=== PATIENT | female | born 1970 | race African-American/Black ===

== ENCOUNTER 2016-09-30 18:22 | Inpatient (IN) ==
[2016-09-30] MEDS ORDERED: MORPHINE IV ONE (18:54)
[2016-09-30] MEDS ORDERED: ZOFRAN IV ONE (18:54)
[2016-09-30] MEDS ORDERED: BENADRYL IV ONE (19:33)
[2016-09-30 19:37] LABS: ALBUMIN 3.4 g/dL (3.5-5.0); CALCIUM 9.1 mg/dL (8.8-10.2); POTASSIUM 4.1 mmol/L (3.5-5.1); TOTAL BILIRUBIN 0.2 mg/dL (0.20-1.00); TOTAL PROTEIN 7.2 g/dL (6.3-8.3)
[2016-09-30 19:39] LABS: MANUAL DIFF NEEDED? NO
[2016-09-30 19:40] LABS: BASO% 0.4 % (0.0-0.8); EOS# 0.44 X1000 (0.0-0.7); EOS% 4.3 % (0.0-10.0); HEMATOCRIT 27.4 % (37.0-47.0); HEMOGLOBIN 9.1 g/dL (12.0-16.0); IMM GRAN# 0.02 X1000 (0.0-0.04); IMM GRAN% 0.2 % (0.0-0.5); LYMPH# 2.46 X1000 (1.2-3.4); LYMPH% 24.1 % (20.5-51.1); MCH 25.9 PG (27-31); MCHC 33.2 g/dL (33-37); MCV 78.1 FL (81-99); MONO% 6.9 % (1.7-9.3); MPV 9.4 FL (7.4-10.4); NEUT% 64.1 % (42.2-75.2); PLT 480 X1000 (130-400); RBC 3.51 XMIL (4.2-5.4)
[2016-09-30] MEDS ORDERED: HEPARIN IV ONE (20:14)
[2016-09-30] MEDS ORDERED: HEPARIN 25,000 UNITS/D5W 25,000 UNIT/250 ML IV.SOLN IV SCH (20:15)
--- NOTE | 2016-09-30 20:15 | PROVIDER DOCUMENTATION ---
This chart was entered by Heidi Hale Scribe, acting as scribe for Michael Claros MD. HPI-General Adult - General Chief Complaint: Extremity Pain Stated Complaint: EXTREMITY PAIN "NEROPATHY" Time Seen by Provider: 09/30/16 18:51 Source: patient Allergies/Adverse Reactions: Patient Allergies Allergy/AdvReac Type Severity Reaction Status Date / Time Penicillins Allergy RASH Verified 02/28/16 10:46 Home Medications: Home Medication List Medication Instructions Recorded Confirmed Last Taken Type Aspirin 81 mg PO DAILY #0 chewtab 01/29/13 03/11/16 03/11/16 07:00 Rx 81 MG Nitroglycerin Sl [Nitroglycerin] 0.4 mg SL Q5M PRN PRN #0 tablet 01/29/1303/11/16 07:00 Rx 0.4 MG Ergocalciferol (Vitamin D2) 50,000 unit PO DIRECTED 11/03/15 03/11/16 07:00 History [Vitamin D] 65927 UNIT LOVAstatin [Mevacor] 20 mg PO DAILY 11/03/15 03/11/16 03/11/16 07:00 History 20 MG Lisinopril 30 mg PO BID 11/03/15 03/11/16 03/11/16 07:00 History 30 MG Glipizide [Glipizide Xl] 5 mg PO BID 11/10/15 03/11/16 03/11/16 07:00 History 5 MG Insulin Glargine [Lantus] 18 unit SUBQ QHS 11/10/15 03/11/16 03/10/16 21:00 History 18 UNIT Clopidogrel [Plavix] 75 mg PO DAILY #30 tablet 01/24/16 03/11/16 03/11/16 07:00 Rx 75 MG Gabapentin [Neurontin] 300 mg PO TID #90 capsule 01/24/16 03/11/16 03/11/16 07: 00 Rx 300 MG Hydrocodone/APAP 7.5 mg/325 mg 1 each PO Q6H PRN PRN #25 tablet 01/24/1603/11/16 07:00 Rx [[place]-7.5] 1 EACH Daptomycin 500 mg IV Q24H #35 03/08/16 03/11/16 03/11/16 07:00 Rx 500 MG Amlodipine [Norvasc] 5 mg PO DAILY #0 tablet 03/19/16 Unknown Rx Clonazepam [Klonopin] 0.5 mg PO Q8H PRN PRN #0 tablet 03/19/16 Unknown Rx Levofloxacin [Levaquin] 500 mg PO ONCE #34 tablet 03/19/16 Unknown Rx Metoprolol Succinate E.r. [Toprol 25 mg PO BID #0 tablet 03/19/16 Unknown Rx Xl] - History of Present Illness -Gen Adult Nature of Presenting Problems: Pt is a 46 year old female who came to the ED with a cc of her right leg being cold to the touch and not having any feeling. Pt reports her foot was numb and painful to the touch two days ago. Pt reports she has neuropathy and her left leg was amputated. pt reports she has diabetes and is a smoker. Location of Pain/Injury: reports: feet (right) Pain Radiation: reports: no radiation Quality of Pain: reports: sharp Severity: reports: moderate Onset/Duration: reports: 2 days ago Timing: reports: still present Context/Activities at Onset: reports: none Modifying Factors: improves with: nothing Associated Symptoms: reports: trouble walking. denies: diarrhea, nausea Similar Symptoms Previously?: Yes Recently seen or treated by another doctor?: Yes Review of Systems - Adult - REVIEW OF SYSTEMS - ADULT Constitutional: denies: chills, fever Eyes: reports: no symptoms reported Ears, Nose, Mouth & Throat: reports: no symptoms reported Cardiovascular: denies: chest pain, syncope Respiratory: reports: no symptoms reported Gastrointestinal: reports: no symptoms reported Genitourinary: reports: no symptoms reported Musculoskeletal: reports: no symptoms reported Integumentary: reports: other (right foot cold to the touch). denies: itching, nail changes Neurological: reports: numbness (right foot). denies: seizure, tremors Psychiatric: reports: no symptoms reported Endocrine: reports: no symptoms reported Hematologic/Lymphatic: reports: no symptoms reported Allergic/Immunologic: reports: no symptoms reported All Other Systems: Reviewed and Negative Past History - Adult - PAST MEDICAL HISTORY-ADULT Review of Records: reports: Nursing Assessment Review Major Childhood Illnesses: reports: denies history Cardiovascular: reports: HTN, CA Respiratory: reports: denies history Gastrointestinal: reports: denies history Obstetrical/Gynecological: reports: denies history Genitourinary: reports: kidney disease Musculoskeletal: reports: denies history Neurological: reports: CVA Endocrine/Immune: reports: Diabetes Other Conditions: reports: denies history - PRIOR SURGERIES/PROCEDURES Surgical/Procedure History: reports: orthopedic (extremity) (left foot 5th toe amputate) - IMMUNIZATION STATUS Childhood Immunizations: See Nurse Assessment Flu Vaccine: See Nurse Assessment - FAMILY HISTORY Family History: reviewed, not pertinent Physical Exam-General - PHYSICAL EXAM-ADULT Initial Vital Signs Reviewed: Yes - CONSTITUTIONAL General Appearance: alert, mild distress - EYES Eyes: PERRL/EOMI, pink conjunctivae - HEAD, EARS, NOSE, MOUTH & THROAT HENMT: normocephalic/atraumatic, moist mucous membranes - NECK Neck: non-tender, full range of motion - RESPIRATORY Respiratory: chest non-tender, lungs clear - CARDIOVASCULAR Cardiovascular: normal peripheral pulses, regular rate, rhythm - GASTROINTESTINAL (ABDOMEN) Abdominal Exam: normal bowel sounds, non tender - MUSCULOSKELETAL Back Exam: normal inspection, no CVA tenderness Extremity: no pedal edema, pulse deficit (no pulse in right foot), tenderness ( right foot), other (left leg amputation; right cold to the touch from mid lower leg to foot) - SKIN Integumentary: normal color, normal turgor - NEUROLOGIC Neurologic: grossly normal - PSYCHIATRIC Psych/Mental Status: normal mood/affect, normal thought content, normal thought process, oriented x 3 Progress - PLAN OF CARE/RESULTS Progress/Plan/Lab Results: Vital Signs - 8 hr 09/30/16 18:27 Temperature 97.9 F Pulse Rate 102 H Respiratory Rate 18 Blood Pressure 163/89 O2 Sat by Pulse Oximetry 100 Result Diagrams: 09/30/16 19:03 09/30/16 19:05 Departure - Departure Date of Disposition Decision: 09/30/16 Time of Disposition Decision: 20:14 DIAGNOSIS: Peripheral vascular complications Disposition: ADMITTED INPATIENT 09 Certified Medical Emergency: Emergent Condition: Good Referrals and Follow-Ups: Star Walker MD [Primary Care Provider] - - Critical Care Note This patient required my direct & personal management of CC.: No This chart was documented by the indicated scribe, (Heidi Hale Scribe) and accurately reflects the services I performed and decisions made by me, O' Meara,Michael F., MD, as attested by the provider's signature.
--- NOTE | 2016-09-30 20:26 | Diag Imaging Result Doc PS360 ---
ANGIOGRAM/AORTA W/RUNOFF - 09/30/2016 INDICATION: no blood flow right lower extremity TECHNIQUE: Axial CT images were obtained after administering intravenous contrast. Three-dimensional angiographic images were generated. A CT dose reduction protocol was used. COMPARISON: 01/13/2016 FINDINGS: There is complete occlusion of the right distal superficial femoral artery and popliteal artery, beginning at about the abductor hiatus. Some deep femoral artery branches extend below the knee and reconstitute the peroneal and posterior tibial artery. The anterior tibial artery remains completely occluded. However this was the case on the prior exam. There has been left [id number] amputation. IMPRESSION: Complete occlusion of the right distal superficial femoral artery and popliteal artery. Reconstitution of the arteries of the left calf for the most part, by small muscular branches of the deep femoral artery. Electronically signed by Terry Cleaning 09/30/2016 8:23 PM
[2016-09-30] MEDS ORDERED: HEPARIN 25,000 UNITS/D5W 25,000 UNIT/250 ML IV.SOLN ONE (20:29)
[2016-09-30] MEDS ORDERED: NS 1,000 ML ONE (20:31)
[2016-09-30] MEDS ORDERED: NITROGLYCERIN SL PRN (22:39)
[2016-09-30] MEDS ORDERED: KLONOPIN PO PRN (22:39)
[2016-09-30] MEDS ORDERED: MORPHINE IV PRN (22:41)
[2016-09-30] MEDS ORDERED: ZOFRAN IV PRN (22:41)
[2016-09-30] MEDS ORDERED: HEPARIN 25,000 UNIT in NS 250 ML IV SCH (22:45)
[2016-09-30] MEDS: NS 1,000 ML IV SCH (23:15)
[2016-09-30] MEDS: NORCO-7.5 PO PRN (23:47)
[2016-09-30] MEDS: LIPITOR PO SCH (23:48)
[2016-10-01 00:13] LABS: INR 0.93; PROTIME 9.7 Seconds (9.2-11.7)
[2016-10-01 00:16] LABS: HEMOGLOBIN A1C 8.2 % (4.8-6.0)
--- NOTE | 2016-10-01 02:22 | HISTORY AND PHYSICAL ---
REASON FOR ADMISSION: Three-day history of worsening right lower extremity pain. HISTORY OF PRESENT ILLNESS: Ms. 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 She comes in today complaining of worsening but initially intermittent throbbing right foot pain. The pain radiates to the right calf and it is worse when she tries to bear weight on it. For the last 2 nights she has been unable to sleep because the pain has been getting progressively worse and constant. She says she has also noticed that she has developed a very cold feeling in her foot but denies any discoloration, fever or chills. No trauma. Denies any antecedent palpitations, chest pain, any cardiorespiratory complaints. She denies any GI or complaints. No focal neurological complaints. No arthralgias or rash. No trauma to said foot. REVIEW OF SYSTEMS: Twelve system review was done. Positive findings noted above. No swelling or redness in the foot. ALLERGIES: Penicillin. HOME MEDICATIONS: Nursing to reconcile home medications when available. Her old medication list had her taking amlodipine, aspirin, Klonopin, Plavix, vitamin D, Neurontin, glipizide, hydrocodone 7.5, Lantus, lisinopril, Mevacor, metoprolol and nitroglycerin. FAMILY HISTORY: The patient denies any family members with cardiac or respiratory disease. Positive in first-degree relatives. SOCIAL HISTORY: She smokes about a pack a day. No alcohol or drug use. Has a past medical history of cocaine use, however. SURGICAL HISTORY: She had a femoral-popliteal bypass and left AKA. Patient also has had 4 stents in her coronary arteries. PRIMARY CARE PHYSICIAN: Dr. Walker LABORATORY WORK: White count is 10,000, hemoglobin and hematocrit 9 and 27, platelets 480,000. Sodium 133, BUN 13, creatinine 1.4, glucose 187. A CT angiogram aorta with runoff shows complete occlusion of the right distal femoral artery and popliteal artery. EKG pending at this time, just ordered by me and will be reviewed later. PHYSICAL EXAMINATION: VITAL SIGNS: Blood pressure 183/93, heart rate 98, respirations 18, temperature is 99.1. GENERAL: She is an overweight middle aged woman who is in mild to moderate distress from the pain in her right foot. She is alert and oriented at the present time. Has normal mood and affect. HEENT: Head is normocephalic, atraumatic. Eyes SRIDHAR, EOMI. Conjunctivae not pale. ENT and oropharynx exam is grossly normal. NECK: Supple. No JVD or carotid bruit. No thyromegaly. LYMPHATIC: Exam is negative. CHEST: Clear to auscultation. Good air entry both lung hernandez. CARDIOVASCULAR: First and second heart sounds heard. No gallops, murmurs, rubs. Rhythm is regular. ABDOMEN: Protuberant, soft. No masses or organomegaly. No tenderness. Bowel sounds are hypoactive. RECTAL: Deferred at this time. EXTREMITIES: Patient has a left AKA stump which has no visible breakdown. On the right leg, she has a very cold, pulseless right foot with no appreciable pulses from the dorsalis pedis or the posterior tibialis arteries. These coldness extends all the way to the upper 2/ 3 of the right leg. No breakdown. No swelling. No erythema. No discoloration or gangrenous changes. SKIN: Intact. No breakdown, lesion or erythema. MUSCULOSKELETAL: Exam is grossly normal. ASSESSMENT: 1. Peripheral arterial disease with ischemic right leg. 2. Coronary artery disease. 3. Type 2 diabetes. 4. Chronic diastolic heart failure, stable. 5. Chronic kidney disease, stage 3. 6. Hyperlipidemia. 7. Hypertensive heart disease. 8. Tobacco use. 9. Anemia of chronic inflammation. PLAN: At this time the patient was already seen by Dr. Zabala and case was discussed with Dr. Sauceda, the vascular surgeon. She will be continued on heparin and I will continue aspirin while holding off Plavix in the interim should in case surgical intervention be warranted. We are going to recheck her A1c, start her on a sliding scale, continue Lantus. We will resume all her blood pressure medications once medication reconciliation list has been addressed by the nursing staff. Also treat her symptomatically for her pain as warranted. The patient is on Mevacor and I have decided to put her on a more potent statin, i.e. atorvastatin. Anemia workup was ordered and will need to be followed and any deficiencies will need to be addressed accordingly. Smoking cessation was reiterated to the patient and she says that she wants to quit but per her body language she does not appear to be very committed to doing this at this point in time even though she is aware that this is largely responsible for her current problem. We will also order a urine drug screen because of her prior history of cocaine use which could be contributing to this problem. Heparin protocol was initiated also. cc: Dimitri Michel MD MTDD
[2016-10-01] MEDS: MORPHINE IV PRN ×7 (02:43→23:04)
[2016-10-01] MEDS ORDERED: HEPARIN IV ONE (03:34)
[2016-10-01] MEDS ORDERED: HEPARIN 25,000 UNIT in NS 250 ML IV SCH (03:36)
--- NOTE | 2016-10-01 05:26 | EKG Report ---
Test Performed on : 09/30/2016 11:46:39 PM Test Reason : CAD PAD Blood Pressure : / mmHG Vent. Rate : 093 BPM Atrial Rate : 093 BPM P-R Int : 118 ms QRS Dur : 080 ms QT Int : 370 ms P-R-T Axes : 037 040 212 degrees QTc Int : 460 ms Normal sinus rhythm. T wave abnormality, consider inferolateral ischemia Prolonged QT Abnormal ECG When compared with ECG of 30-SEP-2016 23:45, (Unconfirmed) No significant change was found Confirmed by Gian MONTAÑO, Epi Kilpatrick ([id number]) on 10/02/2016 2:15:42 PM
[2016-10-01 05:57] LABS: MANUAL DIFF NEEDED? NO
[2016-10-01 06:01] LABS: BASO% 0.5 % (0.0-0.8); EOS# 0.39 X1000 (0.0-0.7); EOS% 3.5 % (0.0-10.0); HEMOGLOBIN 8.3 g/dL (12.0-16.0); IMM GRAN# 0.02 X1000 (0.0-0.04); IMM GRAN% 0.2 % (0.0-0.5); LYMPH# 3.59 X1000 (1.2-3.4); LYMPH% 32.5 % (20.5-51.1); MCHC 33.2 g/dL (33-37); MCV 78.4 FL (81-99); MONO# 0.76 X1000 (0.11-0.59); MONO% 6.9 % (1.7-9.3); MPV 9.1 FL (7.4-10.4); NEUT% 56.4 % (42.2-75.2); PLT 452 X1000 (130-400); RBC 3.19 XMIL (4.2-5.4)
--- NOTE | 2016-10-01 06:24 | CONSULTATION ---
DATE OF CONSULTATION: 09/30/2016 HISTORY OF PRESENT ILLNESS: This is a 46-year-old female, patient of Dr. Sanchez and Dr. Sauceda, who has severe peripheral vascular disease and coronary artery diseased. She has a history of left lower extremity peripheral vascular disease resulting in ischemic rest pain wound, ultimately requiring left above-knee amputation after failed SFA to distal vein bypass. She presents now with a greater than 48 hour history of worsening pain to her right leg. It waxes and wanes, but this afternoon she decided to come to the emergency department for further evaluation. She states the coolness of her foot overall is quite painful, but she does have muscular function in the foot. She ambulates with a prosthetic on her left leg. She does have a history of coronary stents x4, placed at some point in the past. PAST MEDICAL HISTORY: 1. CVA in 2010. 2. Insulin-dependent diabetic. 3. Hypertension. 4. Coronary disease with stent placement in the circumflex, LAD, obtuse marginal in the past. 5. Chronic kidney disease. 6. History of left leg osteomyelitis requiring an above knee amputation. 7. Peripheral vascular disease. 8. Tobacco abuse. PAST SURGICAL HISTORY: 1. She has had coronary stents times 3 or 4. 2. She has had a SFA to posterior tibial vein bypass. 3. Left above-knee amputation. SOCIAL HISTORY: Smokes daily. No alcohol or drug abuse. Lives at home. REVIEW OF SYSTEMS: Ten point negative other than what is mentioned in HPI. MEDICATIONS: Takes aspirin and other blood thinners. PHYSICAL EXAMINATION: Vital Signs: Temperature 97.9, pulse 102, blood pressure 163/89, O2 saturation 100% on room air. She is 149 pounds, 5 foot, 3 inches. General: She is alert, in no acute distress. HEENT: No scleral icterus. Cardiovascular: Normal rate, regular rhythm. Pulmonary: No increased work of breathing. Abdomen: Soft, nontender, nondistended without palpable pulsatile masses. Extremities: Bilateral femoral pulses. On the extremity exam, she has a left above-knee amputation with a well-healed stump. Right leg has chronic ischemic changes to the right lower extremity, but strength seems to be intact in her digits and she is able to flex dorsi and plantar flex her foot. Sensation maybe mildly diminished, but intact. Peripheral vascular exam: She has 2+ femoral pulses bilaterally. Popliteal pulse on the right is not easily palpable. There is a monophasic to biphasic Doppler signal. In the right foot a monophasic posterior tibial pulse. No obvious anterior tibial signal. The leg is warm, but it becomes cool at the distal calf through her foot. I do not see any pallor or mottling of the foot. Otherwise, neurologically she seems intact. LABS: White count 10, hematocrit 27, platelets 480,000. Creatinine is 1.4, glucose 187. LFTs are normal. CT angiogram on my read shows severe peripheral vascular disease throughout her right lower extremity, extending from the iliacs all way down. On her previous scan she is noted to have a distal popliteal occlusion with some reconstitution. On this one it appears that occlusion has progressed and starts about the level the mid SFA. We do not have reconstructed images available, and it is difficult to say if there is calcification or at least some reconstitution via collaterals in the peroneal or posterior tibial. I do not see any evidence of aneurysm or dissection. ASSESSMENT AND PLAN: This 46-year-old female with severe arterial disease and peripheral vascular disease. Based off her history and her exam and the findings of her CT angiogram, it appears that she has progressed now to ischemic rest pain. I do not see an acutely threatened limb. It is quite painful, but neurologically it is intact and really more of chronic findings on her CT scan and her exam. Discussed the case with Dr. Sauceda, who knows her. He agrees that this is most likely a progression of her chronic disease. I think distal options for bypass are going to be limited and that this ultimately will require an above-knee amputation. Discussed with the patient. She is obviously apprehensive to do this. Plan to admit her to hospitalist service now we are starting the heparin drip here in the emergency department. Will control her pain. Will to continue follow along. Dr. Sauceda will see her in the morning. cc: Suresh Zabala MD [facility]
[2016-10-01 06:29] LABS: AGAP 12; ALBUMIN 3.2 g/dL (3.5-5.0); ALKALINE PHOSPHATASE 77 U/L (32-104); BUN 14 mg/dL (8-22); CALCIUM 8.5 mg/dL (8.8-10.2); CHLORIDE 105 mmol/L (98-107); COSMO 281; GOT 13 U/L (10-30); GPT 9 U/L (10-36); HDL 41 mg/dL (45-65); LDL 110 mg/dL; POTASSIUM 4.1 mmol/L (3.5-5.1); SODIUM 139 mmol/L (136-145); TCO2 22 mmol/L (25-35); TOTAL BILIRUBIN 0.13 mg/dL (0.20-1.00); TOTAL PROTEIN 6.7 g/dL (6.3-8.3); TRIGLYCERIDES 138 mg/dL (35-135); VLDL 28 mg/dL
[2016-10-01] MEDS: HUMALOG SUBQ SCH ×4 (07:02→20:41)
[2016-10-01] MEDS ORDERED: PLAVIX PO SCH (09:00)
[2016-10-01] MEDS ORDERED: NORVASC PO SCH (09:00)
[2016-10-01] MEDS: NEURONTIN PO SCH ×3 (09:42→20:35)
[2016-10-01] MEDS: PRINIVIL PO SCH ×2 (09:42→20:35)
[2016-10-01] MEDS: ASPIRIN PO SCH (09:43)
[2016-10-01] MEDS: HEPARIN IV PRN ×2 (12:05→19:41)
[2016-10-01] MEDS: HEPARIN 25,000 UNIT in NS 250 ML IV SCH ×3 (12:11→19:44)
[2016-10-01] MEDS: NS 1,000 ML IV SCH ×2 (13:14→20:07)
--- NOTE | 2016-10-01 13:37 | PROGRESS NOTE ---
DATE: 10/01/2016 SUBJECTIVE: The patient reports to me persistent pain in her right leg and foot. It is worsened with walking. It is lessened with hanging her foot off the side of the bed. It became a lot worse a couple of days ago. OBJECTIVE: Vital signs: She is afebrile. Vital signs are stable. General: Alert and oriented x4. No acute distress. Extremities: Her right distal leg and foot are cool but no mottling or gangrenous changes are present. She is neurologically intact throughout her right lower extremity. ASSESSMENT AND PLAN: A 46-year-old female with severe peripheral vascular disease in the right leg. We are awaiting Dr. Sauceda's evaluation and recommendation for any attempt at revascularization. If this is not possible I have discussed with the patient the possible need for amputation for worsening vascular disease and the chronic rest pain. At this time she is not interested in that. cc: Hang Sanchez MD
[2016-10-01] MEDS ORDERED: INSULIN PEN NEEDLES ONE (16:35)
--- NOTE | 2016-10-01 18:00 | PROGRESS NOTE ---
DATE: 10/01/2016 SUBJECTIVE: Patient has no focal complaints. OBJECTIVE: Vital Signs: Blood pressure 151/75, heart rate 104, respiratory rate 14, temperature 99.5 degrees, 94% on room air. Cardiovascular: Regular rate and rhythm. Pulmonary: Bilateral breath sounds. Clear to auscultation. Gastrointestinal: Soft, nontender, nondistended. Bowel sounds are positive. Extremities: No clubbing or cyanosis. Lymphatics: No peripheral edema. Neurological Examination: Nonfocal. LABORATORY DATA: White count 11, hemoglobin and hematocrit 8 and 25, platelets 452, CMP was normal. PROBLEM LIST: 1. Right ischemic leg with severe peripheral vascular disease. She is on anticoagulation. Vascular Surgery, Dr. Sauceda, will evaluate and follow. 2. Coronary artery disease. Continue treatment and follow closely. 3. Diabetes appears to be stable. Continue sliding scale insulin and follow. 4. Disposition. Pending her current problem, the peripheral vascular disease may end up requiring amputation but we will continue to monitor very closely. cc: Zia Amos MD
[2016-10-01] MEDS: ZOFRAN IV PRN (18:50)
[2016-10-01] MEDS: LIPITOR PO SCH (20:35)
[2016-10-01] MEDS: LANTUS SUBQ SCH (20:56)
[2016-10-01] MEDS: TYLENOL PO PRN (21:36)
[2016-10-02] MEDS ORDERED: HEPARIN 25,000 UNIT in NS 250 ML IV SCH (03:30)
[2016-10-02 03:35] LABS: UR AMPHETAMINES QUAL NONE DETECTED (NONE DETECT); UR BARBITUATES QUAL NONE DETECTED (NONE DETECT); UR BENZODIAZEPIN QUAL NONE DETECTED (NONE DETECT); UR CANNABINOIDS QUAL NONE DETECTED (NONE DETECT); UR COCAINE QUAL NONE DETECTED (NONE DETECT); UR METHADONE QUAL NONE DETECTED (NONE DETECT); UR OPIATES QUAL PRESUMPTIVE POSITIVE (NONE DETECT); UR OXYCODONE QUAL NONE DETECTED (NONE DETECT); UR PCP QUAL NONE DETECTED (NONE DETECT)
[2016-10-02] MEDS: NS 1,000 ML IV SCH ×4 (03:35→18:26)
[2016-10-02] MEDS: MORPHINE IV PRN ×6 (05:06→20:50)
[2016-10-02] MEDS: HEPARIN 25,000 UNIT in NS 250 ML IV SCH (05:10)
[2016-10-02 06:37] LABS: MANUAL DIFF NEEDED? NO
[2016-10-02] MEDS: HUMALOG SUBQ SCH ×3 (06:42→21:25)
[2016-10-02 06:45] LABS: BASO% 0.2 % (0.0-0.8); EOS# 0.14 X1000 (0.0-0.7); EOS% 0.8 % (0.0-10.0); HEMATOCRIT 21.7 % (37.0-47.0); HEMOGLOBIN 6.9 g/dL (12.0-16.0); IMM GRAN# 0.07 X1000 (0.0-0.04); IMM GRAN% 0.4 % (0.0-0.5); LYMPH% 11.5 % (20.5-51.1); MCH 25.3 PG (27-31); MCHC 31.8 g/dL (33-37); MCV 79.5 FL (81-99); MONO# 1.41 X1000 (0.11-0.59); MONO% 8.5 % (1.7-9.3); MPV 10.4 FL (7.4-10.4); NEUT% 78.6 % (42.2-75.2); PLT 347 X1000 (130-400); RBC 2.73 XMIL (4.2-5.4)
[2016-10-02 07:04] LABS: CALCIUM 8.1 mg/dL (8.8-10.2); POTASSIUM 4.5 mmol/L (3.5-5.1)
[2016-10-02] MEDS: ZOFRAN IV PRN ×3 (07:05→20:49)
[2016-10-02] MEDS: PRINIVIL PO SCH ×2 (10:52→21:24)
[2016-10-02] MEDS: ASPIRIN PO SCH (10:52)
[2016-10-02] MEDS: NEURONTIN PO SCH ×3 (10:52→21:25)
--- NOTE | 2016-10-02 11:39 | PROGRESS NOTE ---
DATE: 10/02/2016 SUBJECTIVE: This patient is complaining of right leg pain and nausea. OBJECTIVE: Vital Signs: Temperature 99.9 degrees, pulse 116, respiratory rate 20, blood pressure 114/52, oxygen saturation 93 on room air. HEENT: Head normocephalic. No trauma. PERRLA. Neck: Supple. No JVD. No masses. Central trachea. Chest: Clear to auscultation. No wheezing. No rales. Cardiovascular: RRR. No murmurs. Tachycardic. Abdomen: Soft, nontender, nondistended. No hepatosplenomegaly. Extremities: Left above the amputation. Right lower extremity pale, cold. I can feel the pulse. Painful to palpation and mobilization. Neurological: The patient is alert and oriented x3. She moves all 4 extremities. LABORATORY: WBC 16.5, hemoglobin 6.9, hematocrit 21.7, platelets 347,000. Sodium 136, potassium 4.5, chloride 101, bicarbonate 19, BUN 24, creatinine 2, glucose 212, calcium 8.1. ASSESSMENT AND PLAN: 1. Right ischemic leg with severe peripheral vascular disease. She is on anticoagulation. Surgery is on board. This patient wants to talk to the surgery department to see if she can have a stent placed. I discussed with her that there is a high possibility of having a new amputation and she seems to understand. 2. Coronary artery disease. Continue treatment and follow closely. 3. Type 2 diabetes. Continue with sliding scale and insulin for now. 4. Acute on chronic kidney disease. I will put this patient on IV fluids. She will be on normal saline at 125 mL/h. 5. History of peripheral vascular disease with left lower extremity amputation. Aware. She had an angiogram of the aorta and right lower extremity that showed complete occlusion of the right distal superficial femoral artery and popliteal artery. Reconstitution of the arteries of the left calf for the most part by small muscular branches of the deep femoral artery. 6. Anemia. Her hemoglobin is 6.9. I will transfuse this patient with 1 PRBC. 7. Overall, this patient is having pain. The right leg is ischemic. Surgery department is on board. She wants to try a stent placement in the right lower extremity to increase the blood flow to the lower extremity. Surgery department will decide if this is a treatment option or not. cc: Jaziel Bentley MD
[2016-10-02 12:06] LABS: PROTIME 10.5 Seconds (9.2-11.7)
[2016-10-02] MEDS ORDERED: NS 250 ML ONE (13:21)
[2016-10-02] MEDS ORDERED: NS 500 ML IV SCH (14:27)
[2016-10-02] MEDS: TYLENOL PO PRN (15:26)
--- NOTE | 2016-10-02 15:28 | PROGRESS NOTE ---
DATE: 10/02/2016 SUBJECTIVE: The patient continues to report distal right leg and foot pain. OBJECTIVE: Vital Signs: T-max last night of 101.9, current temperature 99.9 degrees, pulse 99- 116, blood pressure 114/52. General: She was sleeping, but easily arousable and alert and following commands, in no acute distress. GI: Soft, nontender, nondistended. Extremities: The right leg below the knee is cool, above the knee is warm. No ulcerative lesions are present or necrotic tissue. LABORATORY: Hemoglobin 6.9, hematocrit 21.7. ASSESSMENT AND PLAN: This is a 46-year-old female with severe peripheral vascular disease. She is anemic with a Hemoccult positive in her emesis today. We are going to stop her heparin drip. I have discussed her CTA with Dr. Sauceda. There is no apparent vessel conducive to bypass or stenting for salvage of her leg. I informed the patient that it appears the only recourse is amputation. I would recommend above-knee amputation for better healing and less wound complications of the amputation stump. She is resistant to this at this time. She does not have any immediate need for amputation such as infection or open wounds and gangrene. She may be interested in a referral to a [place] vascular surgeon for a second opinion. cc: Hang Sanchez MD
[2016-10-02] MEDS: LIPITOR PO SCH (21:24)
[2016-10-02] MEDS: LANTUS SUBQ SCH (21:25)
[2016-10-02 21:41] LABS: HEMATOCRIT 23.1 % (37.0-47.0); HEMOGLOBIN 7.7 g/dL (12.0-16.0)
[2016-10-03] MEDS: NS 1,000 ML IV SCH ×4 (03:02→22:35)
[2016-10-03 06:11] LABS: MANUAL DIFF NEEDED? NO
[2016-10-03 06:21] LABS: BASO% 0.1 % (0.0-0.8); EOS# 0.15 X1000 (0.0-0.7); EOS% 1.1 % (0.0-10.0); HEMATOCRIT 22.5 % (37.0-47.0); HEMOGLOBIN 7.5 g/dL (12.0-16.0); IMM GRAN# 0.03 X1000 (0.0-0.04); IMM GRAN% 0.2 % (0.0-0.5); LYMPH# 1.88 X1000 (1.2-3.4); LYMPH% 13.3 % (20.5-51.1); MCH 26.6 PG (27-31); MCHC 33.3 g/dL (33-37); MCV 79.8 FL (81-99); MONO# 1.47 X1000 (0.11-0.59); MONO% 10.4 % (1.7-9.3); MPV 9.4 FL (7.4-10.4); NEUT% 74.9 % (42.2-75.2); PLT 353 X1000 (130-400); RBC 2.82 XMIL (4.2-5.4)
[2016-10-03] MEDS: MORPHINE IV PRN ×3 (06:25→17:28)
[2016-10-03] MEDS: HUMALOG SUBQ SCH ×5 (06:32→22:28)
[2016-10-03 07:18] LABS: POTASSIUM 4.3 mmol/L (3.5-5.1)
[2016-10-03] MEDS: PRINIVIL PO SCH (08:57)
[2016-10-03] MEDS: NEURONTIN PO SCH ×3 (08:58→17:25)
[2016-10-03] MEDS: ASPIRIN PO SCH (08:59)
[2016-10-03] MEDS: NORCO-7.5 PO PRN ×2 (09:04→22:28)
--- NOTE | 2016-10-03 09:28 | Extremity Venous Study ---
PROCEDURE NAME: Vein Mapping Right GSV - 10/01/2016 RIGHT GREATER SAPHENOUS VEIN MAPPING: REQUESTING PHYSICIAN: Dr. Stephen Sauceda. BALL ROLLING MACHINE OPERATOR: Roney. INDICATION: Evaluate for possible bypass. FINDINGS: At Zone 1, the greater saphenous vein is 6.2 mm. Zone 2 is 4.7 mm, Zone 3 is 2.3 mm, Zone 4 is 3.0 mm, Zone 5 is 2.4 mm. There is a branch at the proximal calf. The main greater saphenous vein is too small but the tributary off the greater saphenous vein is 2.0 mm, and this was followed down the level of the ankle at Zone 7 and this tributary is 3.6 mm and Zone 8 3.0 mm. SUMMARY: There does appear to be adequate greater saphenous vein from Zone 1 to Zone 5; however, there is a quite prominent tributary off the greater saphenous vein that is above level fascia from the knee to the ankle. Marginal conduit for bypass in the right lower extremity using the greater saphenous vein and the tributary off of it. cc: MD Stephen Dennis MD
--- NOTE | 2016-10-03 11:00 | VASCULAR LAB ---
PROCEDURE NAME: Arterial Unilateral Leg - 10/01/2016 STUDY: Right lower extremity segmental Doppler exam. INDICATION: Ischemic right leg. FINDINGS: Right brachial pressure is 178. High thigh is 138. Low thigh is 78. Calf PT, DP, and toe were not measurable. SUMMARY: Significant diminished waveforms throughout with no pulsatile flow noted at the level of the distal leg from the calf down. Of note, the right peroneal artery was visualized with ultrasound but flow appeared nonpulsatile and sounded more venous at the ankle. cc: MD Stephen Dennis MD
--- NOTE | 2016-10-03 11:07 | PROGRESS NOTE ---
DATE: 10/03/2016 SUBJECTIVE: This patient is still complaining of right leg pain. No acute events overnight. OBJECTIVE: Vital Signs: Temperature 98.9 degrees, pulse 120, respiratory rate 20, blood pressure 131/65, oxygen saturation 93 on 2L nasal cannula. HEENT: Head normocephalic. No trauma. PERRLA. Neck: Supple. No JVD. No masses. Central trachea. Chest: Clear to auscultation. No wheezing. No rales. Cardiovascular: RRR. Tachycardic. Abdomen: Soft, nontender, nondistended. No hepatosplenomegaly. Extremities: Left lower extremity: She has an amputation above the knee. Right lower extremity: The leg is pale, cold. I cannot feel the pulse. It is painful to palpation and mobilization. Neurologic: The patient is alert and oriented x3. She moves all 4 extremities. LABORATORY: WBC 14.1, hemoglobin 7.5, hematocrit 22.5, platelets 353,000. Sodium 137, potassium 4.3, chloride 104, bicarbonate 19, BUN 37, creatinine 2.2, glucose 160, calcium 8. ASSESSMENT AND PLAN: 1. Right leg ischemia with severe peripheral vascular disease. We stopped the anticoagulation because this patient has been vomiting and we found Hemoccult-positive in her vomitus. This patient wants to continue talking with the Surgery Department to see if they can have a stent placed or bypass. She does not want the amputation. I discussed with her that there is a high possibility of having a new amputation and she seems to understand, but she is refusing at this point. 2. History of coronary artery disease. Continue treatment and follow closely. 3. Type 2 diabetes. Continue with the sliding scale and insulin for now. 4. Acute on chronic kidney disease. I will continue with IV fluids. I stopped the lisinopril because of worsening of kidney function. I will monitor. 5. History of peripheral vascular disease with left lower extremity amputation. Aware. 6. Anemia. Her hemoglobin was 6.9 and she was transfused, and now the hemoglobin is 7.5. Will monitor. cc: Jaziel Bentley MD
--- NOTE | 2016-10-03 11:25 | VASCULAR LAB ---
DATE: 10/01/2016 PROCEDURE: Arterial ultrasound exam. INTERPRETING PHYSICIAN: Suresh Zabala MD. REQUESTING PHYSICIAN: Stephen Sauceda MD. FISHING ROD MECHANIC: Roney. INDICATION: To evaluate level of patency. FINDINGS: The posterior tibial artery and the peroneal artery are visualized from level of their origin to the foot. The right posterior tibial artery was without flow. There was no significant flow seen in the posterior tibial artery. On the right, peroneal artery did have some flow at the level of the mid calf to the ankle, but it was very difficult to image and it was quite diminished. Of note, the surgical technician said she had to use a venous setting to olive picker flow because it was so slow in the peroneal artery. SUMMARY: No patency noted of the posterior tibial artery, but very diminished flow in the peroneal artery, but it does appear patent. cc: MD Stephen Dennis MD
[2016-10-03] MEDS: APRESOLINE PO SCH ×2 (13:41→17:25)
--- NOTE | 2016-10-03 13:46 | CONSULTATION ---
DATE OF CONSULTATION: 10/03/2016 CHIEF COMPLAINT: Progressive pain in the right foot. HISTORY: This is a 46-year-old, black female, smoker who has undergone a left AK amputation. She now presents with rest pain in the right foot. It seemed to worsen over the past few days prior to her admission. Her workup reveals significantly diminished PVRs at the thigh level with poor runoff. Her arteriogram shows an occluded SFA with 2 vessel runoff in the peroneal and posterior tibial. The posterior tibial appears to be calcified but it does extend to her foot. Arterial ultrasound shows actually better flow in the peroneal than the posterior tibial. Evaluation of her greater saphenous vein reveals narrowing of the vein in the thigh to 2.3 and 2.0 at the knee level and what appears to be a tributary branch going down toward the ankle. Unfortunately she continues to smoke. She does have chronic kidney disease, as well as coronary disease and is an insulin-dependent diabetic. ASSESSMENT: This lady has a poor prognosis regarding any salvage to her right lower extremity. I do not recommend proceeding with any attempt at revascularization by myself. She certainly is welcome to seek a 2nd opinion by a vascular surgeon in [place]. I think she is facing an amputation sooner rather than later. Thanks for the opportunity to see her. cc: Stephen Sauceda MD
[2016-10-03] MEDS: ZOFRAN IV PRN (14:52)
[2016-10-03] MEDS: LANTUS SUBQ SCH (22:27)
[2016-10-03] MEDS: LIPITOR PO SCH (22:28)
[2016-10-04] MEDS: MORPHINE IV PRN ×5 (00:49→23:29)
[2016-10-04] MEDS: ZOFRAN IV PRN ×2 (00:49→05:56)
[2016-10-04] MEDS: HUMALOG SUBQ SCH ×5 (05:57→21:34)
[2016-10-04 06:58] LABS: MANUAL DIFF NEEDED? NO
[2016-10-04 07:10] LABS: BASO% 0.2 % (0.0-0.8); EOS# 0.01 X1000 (0.0-0.7); EOS% 0.1 % (0.0-10.0); HEMATOCRIT 21.5 % (37.0-47.0); HEMOGLOBIN 7.1 g/dL (12.0-16.0); IMM GRAN# 0.05 X1000 (0.0-0.04); IMM GRAN% 0.3 % (0.0-0.5); LYMPH# 2.08 X1000 (1.2-3.4); LYMPH% 11.4 % (20.5-51.1); MCH 26.6 PG (27-31); MCV 80.5 FL (81-99); MONO# 2.31 X1000 (0.11-0.59); MONO% 12.6 % (1.7-9.3); MPV 9.8 FL (7.4-10.4); NEUT% 75.4 % (42.2-75.2); PLT 357 X1000 (130-400); RBC 2.67 XMIL (4.2-5.4)
[2016-10-04 07:37] LABS: CALCIUM 7.9 mg/dL (8.8-10.2); POTASSIUM 4.5 mmol/L (3.5-5.1)
[2016-10-04] MEDS: NS 1,000 ML IV SCH ×3 (08:03→19:00)
[2016-10-04] MEDS: ASPIRIN PO SCH (08:08)
[2016-10-04] MEDS: NEURONTIN PO SCH ×3 (08:08→18:05)
[2016-10-04] MEDS: APRESOLINE PO SCH ×3 (08:08→18:05)
--- NOTE | 2016-10-04 11:51 | PROGRESS NOTE ---
DATE: 10/04/2016 SUBJECTIVE: This patient is still complaining of right lower extremity pain. No acute events overnight. I discussed with this patient about her ischemic leg. She has been evaluated here in this hospital by 2 surgeons, Dr. Sanchez and Dr. Sauceda, and they both believe that there is a poor prognosis regarding any salvage to her right lower extremity. They are not planning to do any attempt at revascularization at this moment. After a large conversation with this patient about her leg, she still wants to go ahead and get a 2nd opinion. We have a Hemoccult that showed blood and her hemoglobin has been dropping, so I will consult gastroenterology to see if we need to do any kind of procedure. Her anticoagulation has been stopped. Once GI clears this patient I will go ahead and try to contact [facility] to see if a vascular surgeon accepts this patient for a 2nd opinion. She will receive 2 units of PRBCs today and I will continue monitoring this patient and controlling her leg pain. She does not have any signs of infection or necrosis at this point. OBJECTIVE: Vital Signs: Temperature 98.3 degrees, pulse 109, respiratory rate 16, blood pressure 128/80, oxygen saturation 95% on 2 L of nasal cannula. HEENT: Head normocephalic. No trauma. PERRLA. Neck: Supple. No JVD. No masses. Central trachea. Chest: Clear to auscultation. No wheezing. No rales. Cardiovascular: RRR. Tachycardic. Abdomen: Soft, nontender, nondistended. No hepatosplenomegaly. Extremities: Left lower extremity, she has an amputation above the knee. Right lower extremity, her leg is pale, cold. I can feel the pulse. It is painful to palpation and mobilization. Neurological: The patient is alert and oriented x3. She moves all 4 extremities. LABORATORY: WBC 18.2, hemoglobin 7.1, hematocrit 21.5, platelets 357,000. Sodium 137, potassium 4.5, chloride 107, bicarbonate 18, BUN 34, creatinine 2.2, glucose 200, calcium 7.9. ASSESSMENT AND PLAN: 1. Right leg ischemia with severe peripheral vascular disease. As I mentioned before, surgery department is on board. This patient wants a 2nd opinion. Once gastroenterology department clears this patient I will try to send this patient to [facility]. 2. Upper gastrointestinal bleed. This patient has been before on anticoagulation. We already stopped the heparin drip. The hemoglobin continues to drop. Gastroenterology has been consulted. 3. History of coronary artery disease. Continue treatment and follow closely. 4. Type 2 diabetes. Continue with sliding scale and insulin for now. Stable. 5. Acute on chronic kidney disease. Continue with IV fluids. All nephrotoxic medications have been stopped. The kidney function is about the same compared with yesterday. 6. History of peripheral vascular disease with left lower extremity amputation. Aware. 7. Anemia. Hemoglobin is 7.1. I will transfuse this patient with 2 PRBCs. cc: Jaziel Bentley MD
[2016-10-04] MEDS: NORCO-7.5 PO PRN (16:16)
[2016-10-04] MEDS: LANTUS SUBQ SCH (21:34)
[2016-10-04] MEDS: LIPITOR PO SCH (21:34)
[2016-10-04] MEDS ORDERED: SODIUM CHLORIDE 0.9% INJ SCH (23:15)
[2016-10-05] MEDS: MORPHINE IV PRN ×7 (03:11→23:39)
[2016-10-05] MEDS: NS 1,000 ML IV SCH ×3 (04:36→17:52)
[2016-10-05] MEDS: PROTONIX IV SCH ×2 (04:37→17:42)
[2016-10-05 06:50] LABS: MANUAL DIFF NEEDED? NO
[2016-10-05 07:00] LABS: BASO% 0.2 % (0.0-0.8); EOS# 0.03 X1000 (0.0-0.7); EOS% 0.2 % (0.0-10.0); HEMATOCRIT 26.9 % (37.0-47.0); HEMOGLOBIN 9.1 g/dL (12.0-16.0); IMM GRAN# 0.03 X1000 (0.0-0.04); IMM GRAN% 0.2 % (0.0-0.5); LYMPH# 1.85 X1000 (1.2-3.4); LYMPH% 10.5 % (20.5-51.1); MCH 27.7 PG (27-31); MCHC 33.8 g/dL (33-37); MCV 81.8 FL (81-99); MONO# 2.05 X1000 (0.11-0.59); MONO% 11.6 % (1.7-9.3); MPV 9.7 FL (7.4-10.4); NEUT% 77.3 % (42.2-75.2); PLT 313 X1000 (130-400); RBC 3.29 XMIL (4.2-5.4)
[2016-10-05 07:18] LABS: CALCIUM 7.4 mg/dL (8.8-10.2); POTASSIUM 3.7 mmol/L (3.5-5.1)
[2016-10-05] MEDS: HUMALOG SUBQ SCH ×4 (08:27→21:40)
[2016-10-05] MEDS ORDERED: ROBINUL ONE (10:15)
[2016-10-05] MEDS ORDERED: DIPRIVAN 1% ONE (10:15)
[2016-10-05] MEDS ORDERED: XYLOCAINE-MPF 2% ONE (10:15)
--- NOTE | 2016-10-05 11:20 | PROGRESS NOTE ---
DATE: 10/05/2016 SUBJECTIVE: This patient is still complaining of right lower extremity pain. No acute events overnight. She will have an EGD done today by gastroenterology and after that, I will try to contact [facility] because this patient once a 2nd opinion for her leg ischemia. OBJECTIVE: Vital Signs: Temperature 99.7 degrees, pulse 128, respiratory rate 16, blood pressure 167/77, oxygen saturation 98 on room air. HEENT: Head normocephalic. No trauma. PERRLA. Neck: Supple. No JVD. No masses. Central trachea. Chest: Clear to auscultation. No wheezing. No rales. Cardiovascular: RRR. Tachycardic. Abdomen: Soft, nontender, nondistended. No hepatosplenomegaly. Extremities: Left lower extremity is amputated above the knee. Right lower extremity, her leg is pale, cold and I cannot feel the pulse. It is painful to palpation. Neurological: The patient is alert and oriented x3. She moves all 4 extremities. LABORATORY: WBC 17.6, hemoglobin 9.1, hematocrit 26.9, platelet 313,000. Sodium 138, potassium 3.7, chloride 108, bicarbonate 15, BUN 25, creatinine 1.6, glucose 141, calcium 7.4. ASSESSMENT AND PLAN: 1. Right leg ischemia with severe peripheral vascular disease. Surgery department is on board. The patient wants a 2nd opinion because here we are planning to do an amputation and she is refusing it. Once the EGD is done today I will try to contact [facility]. 2. Upper gastrointestinal bleed. This patient will have an EGD done today. 3. History of coronary artery disease. Continue treatment and follow closely. 4. Type 2 diabetes. Continue with sliding scale insulin and insulin for now. 5. Acute on chronic kidney disease. This is getting better. All nephrotoxic medication has been stopped. The kidney function is getting better. 6. History of peripheral vascular disease with left lower extremity amputation. Aware. 7. Anemia. Hemoglobin was 7.1. She was transfused and now the hemoglobin is above 9. cc: Jaziel Bentley MD
[2016-10-05] MEDS: NORCO-7.5 PO PRN (11:58)
[2016-10-05] MEDS: NEURONTIN PO SCH ×3 (13:53→17:35)
[2016-10-05] MEDS: APRESOLINE PO SCH ×3 (13:53→17:36)
[2016-10-05] MEDS: ASPIRIN PO SCH (13:54)
--- NOTE | 2016-10-05 15:14 | OPERATIVE NOTE ---
PROCEDURE DATE: PROCEDURE: Esophagogastroduodenoscopy. PREOP DIAGNOSES: 1. Anemia. 2. Gastroesophageal reflux. POSTOP DIAGNOSES: 1. Moderately severe esophagitis. 2. Normal stomach and duodenum. 3. No signs of active bleeding. DESCRIPTION OF PROCEDURE: After informed consent and adequate intravenous sedation by the anesthesia the scope introduced the esophagus. Patient has moderately severe esophagitis. Esophagus also appeared to be slightly dilated however I did not see any esophageal stricture. Cardia, fundus, body normal. Duodenum normal. The scope was withdrawn. The patient tolerated the procedure well without any immediate complications. cc: Drew Ann MD
[2016-10-05] MEDS: LIPITOR PO SCH (21:38)
[2016-10-05] MEDS: LANTUS SUBQ SCH (21:39)
[2016-10-06] MEDS: MORPHINE IV PRN ×5 (03:33→15:43)
[2016-10-06] MEDS: PROTONIX IV SCH (04:55)
[2016-10-06] MEDS: HUMALOG SUBQ SCH ×2 (06:01→14:17)
[2016-10-06 06:26] LABS: CALCIUM 8.2 mg/dL (8.8-10.2); POTASSIUM 4.2 mmol/L (3.5-5.1)
[2016-10-06 06:33] LABS: BASO% 0.2 % (0.0-0.8); EOS# 0.12 X1000 (0.0-0.7); EOS% 0.6 % (0.0-10.0); HEMATOCRIT 27.5 % (37.0-47.0); HEMOGLOBIN 9.4 g/dL (12.0-16.0); IMM GRAN# 0.07 X1000 (0.0-0.04); IMM GRAN% 0.3 % (0.0-0.5); LYMPH# 1.93 X1000 (1.2-3.4); LYMPH% 9.4 % (20.5-51.1); MANUAL DIFF NEEDED? NO; MCH 27.6 PG (27-31); MCHC 34.2 g/dL (33-37); MCV 80.9 FL (81-99); MONO# 2.05 X1000 (0.11-0.59); MPV 9.3 FL (7.4-10.4); NEUT% 79.5 % (42.2-75.2); PLT 353 X1000 (130-400)
[2016-10-06] MEDS: NS 1,000 ML IV SCH ×2 (09:02→14:20)
[2016-10-06] MEDS: NORCO-7.5 PO PRN (09:02)
[2016-10-06] MEDS: ASPIRIN PO SCH (09:03)
[2016-10-06] MEDS: NEURONTIN PO SCH ×2 (09:03→14:19)
[2016-10-06] MEDS: APRESOLINE PO SCH ×2 (09:03→14:19)
[2016-10-06 14:28] VITALS: BP 169/84
--- NOTE | 2016-10-06 15:19 | PROGRESS NOTE ---
DATE: 10/06/2016 SUBJECTIVE: This patient feels a little bit better today. She is still complaining of right lower extremity pain. No acute events overnight. She had an EGD done yesterday that showed esophagitis, no active no active bleed. I contacted [facility] because this patient was a second opinion for her left leg ischemia. We do not have a vascular surgeon on board. Since she already had her left leg amputated, she wants to evaluate her options with the right side. Surgery Department evaluated this patient here, and they do not think this patient has other options, and this is why she wants a second opinion. OBJECTIVE: Vital Signs: Temperature 98.6 degrees, pulse 100, respiratory rate 18, blood pressure 156/74, oxygen saturation 98 on 2 L of nasal cannula. HEENT: Head normocephalic. No trauma. PERRLA. Neck supple. No JVD. No masses. Central trachea. Chest clear to auscultation. No wheezing. No rales. Cardiovascular: RRR. No murmurs. Abdomen soft, nontender , nondistended. No hepatosplenomegaly. Extremities: Left lower extremity is amputated above the knee. Right lower extremity: Her leg is pale, cold, and cannot feel the pulse. It is painful to palpation. Neurologic: The patient is alert and oriented x3. She moves all 4 extremities. LABORATORY: WBC 20.5, hemoglobin 9.4, hematocrit 27.5, platelet 353,000. Sodium 135, potassium 4.2, chloride 105, bicarbonate 17. BUN 20, creatinine 1.5, glucose 115, calcium 8.2. ASSESSMENT AND PLAN: 1. Right leg ischemia with severe peripheral vascular disease. Surgery Department is on board. The patient was a second opinion because she was told here that she needs an amputation. I already talked to [facility], and they already accepted the patient. The accepting physician's name is Dr. Ornelas. We are just waiting to get a bed over there to be able to transfer this patient. She is stable. 2. Upper gastrointestinal bleed. This patient had an esophagogastroduodenoscopy done yesterday that showed moderately severe esophagitis. No active bleed. 3. History of coronary artery disease. Continue with treatment and follow closely. 4. Type 2 diabetes. Continue with the sliding scale insulin and insulin for now. 5. Kalvj-fv-[id number] kidney disease. This is her baseline. All of her nephrotoxic medication has been stopped. 6. History of peripheral vascular disease with left lower extremity amputation, aware. 7. Anemia, status post blood transfusion. Her hemoglobin is above 9. We will continue to monitor. cc: Jaziel Bentley MD MTDD
--- NOTE | 2016-10-07 22:24 | DISCHARGE SUMMARY ---
ADMISSION DATE: 09/30/2016 DISCHARGE DATE: 10/06/2016 ADMISSION DIAGNOSES: 1. Peripheral artery disease with ischemic right leg. 2. Coronary artery disease. 3. Type 2 diabetes. 4. Diastolic heart failure. 5. Chronic kidney disease 3. 6. Hyperlipidemia. 7. Hypertensive heart disease. 8. Tobacco dependence. 9. Anemia of chronic inflammation. DISCHARGE DIAGNOSES: 1. Peripheral artery disease with ischemic right leg. 2. Coronary artery disease. 3. Type 2 diabetes. 4. Diastolic heart failure. 5. Chronic kidney disease 3. 6. Hyperlipidemia. 7. Hypertensive heart disease. 8. Tobacco dependence. 9. Anemia of chronic inflammation. CONSULTATIONS: Dr. Delfino Zabala and Dr. Stephen Sauceda as well as Dr. Drew Ann with GI. DIAGNOSTIC PROCEDURES AND FINDINGS: Aorta with runoff. CTA done on 09/30/2016 shows complete occlusion of the right distal superficial femoral artery and popliteal artery. Reconstitution of the arteries of the left calf for the most part by small muscular branches of the deep femoral artery. EKG done on 09/30/2016 shows normal sinus rhythm with nonspecific ST and T abnormalities. Arterial ultrasound right lower extremity done on 10/01/2016 shows no patency noted of the posterior tibial artery, very diminished flow on the peroneal artery but it does appear patent. Saphenous venous mapping done on 10/01/2016 shows adequate greater saphenous vein from zone 1 to zone 5 however there is quite a prominent tributary off greater saphenous vein that is above the level fascia from the knee to the ankle, marginal conduit for bypass in the right lower extremity using the greater saphenous vein and the tributary off of it. EGD done on 10/05/[address] Ann shows moderately severe esophagitis, normal stomach and duodenum, no signs of active bleeding. HOSPITAL COURSE: Mrs. Santos is a 46-year-old female with multiple medical problems including severe PAD, type 2 diabetes, diastolic heart failure and others who presented with right leg had been going on for quite some time. The pain has gotten acutely worse over the past 2-3 days prior to admission. She came into the ER and was noted to be anemic with an elevated white count. Initially the ER consulted surgery who recommended the patient be admitted to our service with them consulting. We started the patient on heparin drip, continued her aspirin but stopped her Plavix. The patient was admitted to the floor and she had multiple vascular studies done including CTA with runoff and arterial Doppler ultrasound. These did show she had very poor blood flow to the right lower extremity and surgery felt that her leg would not be amenable to revascularization and ultimately felt she needed amputation however the patient was very reluctant. She refused amputation and felt that she wanted a 2nd opinion so we called the [facility] and spoke with Dr. Ornelas who accepted the patient for transfer for 2nd opinion. She was also noted to have anemia and we went ahead and checked an occult stool which was positive which prompted a consultation with GI. She had an EGD done on 10/05/2016 which showed some chronic gastritis but nothing acute. The patient did receive some blood during her admission here and that did improve. She had some mild renal insufficiency which initially went up but improved with blood products and some fluids. Overall her stay was largely uneventful without any acute events. She was transferred to [facility] in a stable condition. She will be following up with Dr. Sauceda, her surgeon as needed. She is stable for discharge. DISCHARGE MEDICATIONS: Aspirin 81 mg daily, Klonopin 0.5 mg every 8 hours as needed, Plavix 75 mg daily, vitamin D2 50,000 units p.o. as directed, Neurontin 300 mg p.o. t.i.d., glipizide 5 mg b.i.d., [place] as needed for pain, Lantus 18 units subcu at bedtime, lisinopril 30 mg b.i.d., Primacor 20 mg daily, Toprol-XL 25 mg b.i.d., nitroglycerin as needed for chest pain. DISCHARGE LABS: WBC 20.52, hemoglobin 9.4, hematocrit 27.5, platelet count 353,000. Sodium 135, potassium 4.2, chloride 105, CO2 17, anion gap 13, BUN 20, creatinine 1.5, calcium 3.2. DISCHARGE DIET: Diabetic. DISCHARGE ACTIVITY: Per Dr. Ornelas at [facility]. DISPOSITION AND OTHER DISCHARGE INSTRUCTIONS: Patient is transferred to [facility] and will be under the care of Dr. Ornelas. Once she is discharged she is to follow with Dr. Sauceda as directed and her PCP within the month. She is to return to the ER or call 911 for any worsening complaints or concerns. All questions have been answered. DISCHARGE TIME: Is greater than 35 minutes. Dictated by NURY Downing for Jaziel Bentley MD cc: NURY Downing MD
--- NOTE | 2016-10-23 17:03 | HISTORY AND PHYSICAL ---
HISTORY OF PRESENT ILLNESS: This is a 46-year-old. She sees Dr. Star Walker. She has a history of diastolic heart failure, hypertension, diabetes mellitus type 2 with peripheral neuropathy and stage III kidney disease, peripheral arterial disease. She was admitted to the hospital here on 09/30/2016. 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 On 09/30/2016, she came in complaining of worsening initially intermittent throbbing right foot pain. The pain radiates to the right calf and is worse when she tries to bear weight. For a couple of nights she was unable to sleep. She was admitted with peripheral artery disease and ischemic right leg. Dr. Stephen Sauceda was consulted 10/03, but he had a poor prognosis regarding salvage of her right lower extremity and did not recommend proceeding with any attempt to revascularize, and she wanted to seek a second opinion in [facility]. So she went to [facility] and there received above the knee amputation. Went to [facility], stayed there 1 day and her daughter was concerned about her breathing or swelling. She took her out of the [facility] I believe [facility] and brought her here to our emergency room. She stated that she was short of breath this morning, felt like she was a little swollen. She does not feel that way now. She has not had a bowel movement in 4 days and she does not feel like she is making much urine or has not urinated very much at all. Also, feels like her throat is a little bit raw. Apparently they did a bronchoscopy by her report in [place]. We will see if we can get those records. FAMILY HISTORY: Patient denied any family members with cardiac or respiratory disease in past H and P. She has positive heart disease in first-degree relatives. SOCIAL HISTORY: Smokes about a pack a day. No alcohol or drugs. Has a past medical history of cocaine use, however SURGICAL HISTORY: Fem-popliteal bypass, left above the knee amputation. The patient also had 4 stents and coronary artery disease. ALLERGIES: Penicillin. REVIEW OF SYSTEMS: General: She does not report any fever or chills. She feels like her throat was a little sore ever since she had a bronchoscopy (I presume that was a bronchoscopy she was telling us about in [place]). She complains of episodes of shortness of breath and she felt like she was a little swollen around her neck and her face and swollen everywhere. She felt like she had some fluid retention. Cardiovascular: Denies chest pain or tachy palpitation. GI/: No gross hematuria, dysuria. Musculoskeletal/Neurologic: No new complaints. PHYSICAL EXAM: GENERAL: She is awake and alert. No distress. VITAL SIGNS: Temp 98.4 degrees, pulse 86, respirations 12, blood pressure 190/91. HEENT: The pupils are equal and round. CVP less than 6 cm. NECK: Did not see venous distention, but it was difficult to tell. She has a large body habitus. LUNGS: Clear anterolateral. CARDIOVASCULAR EXAM: Regular rhythm and rate without murmur or S3. PMI nondisplaced. ABDOMEN: Soft, nontender. Her right above the knee amputation stump unremarkable. No ulcers and no drainage. She had a [place] catheter placed at 3 L out. She was on the bedpan. She has not had a bowel movement in 4 days apparently. HEIGHT/WEIGHT: Height 5 feet 3 inches. Weight 200 pounds. LABORATORY DATA: White count 10,150, hematocrit 30, platelet count 521,000. Sodium 143, potassium 4.1, chloride 105, bicarbonate 27, BUN 7, creatinine 1.1. Calculated osmolality 281 and calcium 8.6, magnesium 1.5. ProBNP 14,783. Troponin was 0.046. Albumin 2.1. ProTime 12.4, PTT was 21. Urinalysis 4+ bacteria and less than 10 white blood cells. X-RAY DATA: Chest x-ray: Cardiomegaly and bilateral basilar pulmonary edema. Edema on the right is worse than 03/15/2016. Previous echocardiogram done on 05/30/2016 reveals normal left ventricular cavity size. Ejection fraction 55% to 60%. Mild left atrial enlargement. There was mild mitral regurgitation. No aortic stenosis or regurgitation. Mild mitral regurgitation. No pericardial effusion at that time. She had a myocardial perfusion scan done on 05/30/2016. She had no chest pain. Negative Lexiscan stress EKG or electrocardiogram. Myocardial perfusion images revealed large size severe grade fixed defect in the inferior wall and lateral wall diagnostic of infarct. Small will-infarct ischemia in the distal anterior apical portion. Left ventricular ejection fraction they estimate at 45% with some inferior wall hypokinesis. She had an aortogram with runoff for CTA on 09/30/2016 of the right lower extremity that showed complete occlusion of the right distal superficial femoral artery and popliteal artery. Reconstitution of the arteries in the left calf for the most part by small muscular branches of the deep femoral artery. ASSESSMENT AND PLAN: 1. It appears she has both systolic and diastolic dysfunction. Ejection fraction by myocardial perfusion scan about 45%. She had inferior lateral fixed defect. So, we will try and diurese a little bit. She does have some pulmonary edema complaining of shortness of breath. The question on whether she is having flash edema I do not know and whether she could be having coronary insufficiency. We will check serial cardiac enzymes. We will ask cardiology to get involved and see if we can diurese her carefully. 2. Trouble with urination. I am not sure if that means she is not voiding as much as usual. Her creatinine is 1.1 which looks pretty good. We will put a [place] catheter in. This may be that she is not able to empty her bladder because of constipation. 3. Constipation. We will try some stool softeners to see if we can help. 4. Severe peripheral vascular disease, aware. 5. Diabetes mellitus type 2. We will check pattern sugars. 6. Hypertension. Watch blood pressure systolic; she has blood pressure right now of 190/91, so we may need to add some things to help her improve her afterload. DISPOSITION: Finally, we are going to need to decide on placement; whether she needs to try and go back to rehab or she wants to try to go home with home health, she is going to need some assistance. She has bilateral above the knee amputation. REVIEW OF HER MEDICATIONS: She is on: 1. Metoprolol succinate ER 25 mg b.i.d. 2. Lisinopril 30 mg b.i.d. 3. Mevacor 20 mg a day. 4. Lantus insulin 18 units at bedtime. 5. [place] 7.5 mg q. 6 hours p.r.n. 6. Hydrocodone 7.5 mg q. 6 hours p.r.n. 7. Glipizide 5 mg b.i.d.; I think she is taking glipizide XL. 8. Neurontin 300 mg p.o. t.i.d. 9. Klonopin 0.5 mg q. 8 hours p.r.n. 10. Aspirin 81 mg a day. Of note, she has not complained of any dysuria or gross hematuria. Her urine shows mild sediment. She has 4+ bacteria, less than 10 white blood cells. We are going to put a [place] catheter in. I am going to go ahead and treat empirically. I do not think this is symptomatic urinary tract infection, but we will go ahead. She is allergic to penicillin so we will give her p.o. Levaquin 500 mg p.o. daily for her constipation. We will see if we can add some Colace and MiraLAX. Will follow her daily lab and ask physical therapy to get involved as well as social service and see where we are going to go. We will check her T4, TSH, B 12 and folate. We will check another ProBNP tomorrow. At this point, I am going to try and give her Lasix at 40 mg IV q. 12 hours. cc: James Turk MD
== END 2016-10-06 15:57 | disposition short-term general hospital (02) ==
LOC: P.ED 18:22 → 4N 21:38 → SUATTDRO 21:38 → 4N 22:11
PROVIDERS: ATTEND Internal Medicine

== ENCOUNTER 2016-10-23 12:15 | Inpatient (IN) ==
--- NOTE | 2016-10-23 13:12 | EKG Report ---
Test Performed on : 10/23/2016 12:45:50 PM Test Reason : Chest Pain Blood Pressure : / mmHG Vent. Rate : 094 BPM Atrial Rate : 094 BPM P-R Int : 120 ms QRS Dur : 078 ms QT Int : 408 ms P-R-T Axes : 064 064 -36 degrees QTc Int : 510 ms Normal sinus rhythm. Low voltage QRS Cannot rule out Anterior infarct , age undetermined Abnormal ECG When compared with ECG of 30-SEP-2016 23:46, QRS voltage has decreased Minimal criteria for Anterior infarct are now present Nonspecific T wave abnormality has replaced inverted T waves in Inferior leads T wave inversion now evident in Anterior leads Nonspecific T wave abnormality has replaced inverted T waves in Lateral leads Unconfirmed Result
--- NOTE | 2016-10-23 13:27 | Diag Imaging Result Doc PS360 ---
EXAM: CHEST-PORTABLE HISTORY: post op TECHNIQUE: Erect AP portable at 1315 COMMENT: There is bilateral basilar pulmonary edema and cardiomegaly. The edema on the right is worse than on 03/15/2016. IMPRESSION: Cardiomegaly and pulmonary edema. Electronically signed by Viraj Vogt 10/23/2016 1:24 PM
[2016-10-23 13:56] LABS: URINE MICRO REVIEW NEEDED? NO; URINE SOURCE CATH
[2016-10-23 14:08] LABS: BASO% 0.5 % (0.0-0.8); EOS# 0.19 X1000 (0.0-0.7); EOS% 1.9 % (0.0-10.0); HEMATOCRIT 30.8 % (37.0-47.0); HEMOGLOBIN 9.9 g/dL (12.0-16.0); LYMPH# 2.27 X1000 (1.2-3.4); LYMPH% 22.4 % (20.5-51.1); MANUAL DIFF NEEDED? NO; MCHC 32.1 g/dL (33-37); MONO# 1.01 X1000 (0.11-0.59); MPV 9.1 FL (7.4-10.4); NEUT% 65.2 % (42.2-75.2); PLT 521 X1000 (130-400); RBC 3.54 XMIL (4.2-5.4)
[2016-10-23 14:23] LABS: BILIRUBIN URINE NEGATIVE (NEGATIVE); BLOOD URINE SMALL (NEGATIVE); COLOR YELLOW; GLUCOSE URINE NEGATIVE (NEGATIVE); LEUKOCYTES URINE NEGATIVE (NEGATIVE); NITRITE URINE POSITIVE (NEGATIVE); PH URINE 5.5; PROTEIN URINE 70 mg/dL (NEGATIVE); SP GRAVITY URINE 1.005; TURBIDITY URINE HAZY (CLEAR); UR EPITHELIAL CELLS <10 /HPF (<10); URINE BACTERIA 4+ /HPF; URINE RBC <10 /HPF (<10); URINE WBC <10 /HPF (<10); UROBILINOGEN URINE NORMAL (NORMAL)
[2016-10-23 14:30] LABS: INR 1.17; PROTIME 12.4 Seconds (9.2-11.7); PTT 25.7 Seconds (22.0-36.0)
[2016-10-23 14:33] LABS: AGAP 11; ALBUMIN 2.1 g/dL (3.5-5.0); ALKALINE PHOSPHATASE 69 U/L (32-104); BUN 7 mg/dL (8-22); CALCIUM 8.6 mg/dL (8.8-10.2); CHLORIDE 105 mmol/L (98-107); COSMO 281; GOT 20 U/L (10-30); GPT 11 U/L (10-36); MAGNESIUM 1.5 mg/dL (1.5-2.7); POTASSIUM 4.1 mmol/L (3.5-5.1); SODIUM 143 mmol/L (136-145); TCO2 27 mmol/L (25-35); TOTAL BILIRUBIN 0.37 mg/dL (0.20-1.00); TOTAL PROTEIN 6.6 g/dL (6.3-8.3)
[2016-10-23] MEDS ORDERED: LASIX IV ONE (15:14)
[2016-10-23] MEDS ORDERED: SEPTRA DS PO ONE (15:14)
--- NOTE | 2016-10-23 15:18 | PROVIDER DOCUMENTATION ---
This chart was entered by Amanda Morejon Scribe, acting as scribe for Prabhakar Franklin MD. HPI-General Adult - General Chief Complaint: Post Op Complaint Stated Complaint: post op complaint Time Seen by Provider: 10/23/16 12:23 Source: patient, family (Daughter) Allergies/Adverse Reactions: Patient Allergies Allergy/AdvReac Type Severity Reaction Status Date / Time Penicillins Allergy RASH Verified 10/23/16 12:51 Home Medications: Home Medication List Medication Instructions Recorded Confirmed Last Taken Type Aspirin 81 mg PO DAILY #0 chewtab 01/29/13 10/23/16 10/23/16 Rx LOVAstatin [Mevacor] 20 mg PO DAILY 11/03/15 10/23/16 10/23/16 History Lisinopril 30 mg PO BID 11/03/15 10/23/16 10/23/16 History Glipizide [Glipizide Xl] 5 mg PO BID 11/10/15 10/23/16 10/23/16 History Insulin Glargine [Lantus] 18 unit SUBQ QHS 11/10/15 10/23/16 10/22/16 History Gabapentin [Neurontin] 300 mg PO TID #90 capsule 01/24/16 10/23/16 10/23/16 Rx Hydrocodone/APAP 7.5 mg/325 mg 1 each PO Q6H PRN PRN #25 tablet 01/24/1610/23/16 Rx [[place]-7.5] Clonazepam [Klonopin] 0.5 mg PO Q8H PRN PRN #0 tablet 03/19/16 10/23/16 Rx Metoprolol Succinate E.r. [Toprol 25 mg PO BID #0 tablet 03/19/16 10/23/1610/23 Rx Xl] - History of Present Illness -Gen Adult Nature of Presenting Problems: Pt is a F that presents to the ER due to a post op complaint. Pt had surgery at [facility] about a week ago. Pt was sent to rehab after sx, and checked out yesterday due to not being satisfied with care at facility. had a catheter in until yesterday. Trouble with urinating started after catheter was removed.pt complains of irritated bed sores, feeling puffy and swollen, and having difficulty urinating since surgery. Pt is on multiple pain meds. Denies any SOB. Pts daughter felt that pt should come to ER due to reasons listed above; she reported most of pts symptoms reasons for coming to ER. Location of Pain/Injury: reports: generalized (complains of pain due to swelling ), other (has bedsores on back-mild) Pain Radiation: reports: urethral (pt has trouble urinating/ has not been able to urinate since catheter was taken out 1 day ago), other (has bedsores-mild) Quality of Pain: reports: aching, pressure, other (irritation) Severity: reports: moderate Onset/Duration: reports: gradual, 24 hours ago Timing: reports: still present, constant Context/Activities at Onset: reports: other (post op complaint) Modifying Factors: improves with: urinating (pt has trouble urinating). worse with: vomiting Associated Symptoms: denies: chest pain, diaphoresis, diarrhea, seizure, shortness of breath, vomiting Similar Symptoms Previously?: No Recently seen or treated by another doctor?: Yes (had sx a week ago ) - Sickle Cell Pain Related Context Sickle Cell Pain Location: reports: none Review of Systems - Adult - REVIEW OF SYSTEMS - ADULT Constitutional: reports: weight gain (pts daughter reports that she is swollen and has gained weight since sx). denies: fever Eyes: denies: decreased vision, blurred vision, eye pain Ears, Nose, Mouth & Throat: denies: hearing loss, throat pain Cardiovascular: denies: chest pain, edema, palpitations, syncope Respiratory: denies: shortness of breath, wheezing Gastrointestinal: denies: abdominal pain, constipation, diarrhea, nausea, vomiting Genitourinary: reports: urinary retention (pt has problem emptying bladder w/o catheter) Musculoskeletal: reports: no symptoms reported Integumentary: reports: rash (bed sores-mild) Neurological: denies: headache/migraines, seizure, slurred speech, syncope Psychiatric: reports: no symptoms reported Endocrine: reports: no symptoms reported Hematologic/Lymphatic: reports: no symptoms reported Allergic/Immunologic: reports: allergic reactions (penicillin) All Other Systems: Reviewed and Negative Past History - Adult - PAST MEDICAL HISTORY-ADULT Review of Records: reports: Old Records Reviewed, Nursing Assessment Review, Medications Reviewed Major Childhood Illnesses: reports: denies history Cardiovascular: reports: HTN, [place] Respiratory: reports: denies history Gastrointestinal: reports: denies history Obstetrical/Gynecological: reports: denies history Genitourinary: reports: kidney disease Musculoskeletal: reports: denies history Neurological: reports: CVA Endocrine/Immune: reports: Diabetes Other Conditions: reports: denies history - PRIOR SURGERIES/PROCEDURES Surgical/Procedure History: reports: orthopedic (extremity) (left foot 5th toe amputate) - IMMUNIZATION STATUS Childhood Immunizations: See Nurse Assessment Flu Vaccine: See Nurse Assessment - FAMILY HISTORY Family History: reviewed, not pertinent Physical Exam-General - PHYSICAL EXAM-ADULT Initial Vital Signs Reviewed: Yes - CONSTITUTIONAL General Appearance: alert, moderate distress, obese - EYES Eyes: PERRL/EOMI, pink conjunctivae - HEAD, EARS, NOSE, MOUTH & THROAT HENMT: moist mucous membranes - NECK Neck: full range of motion - RESPIRATORY Respiratory: normal breath sounds - CARDIOVASCULAR Cardiovascular: normal peripheral pulses, regular rate, rhythm - GASTROINTESTINAL (ABDOMEN) Abdominal Exam: non tender, soft - MUSCULOSKELETAL Back Exam: normal inspection, swelling Extremity: deformity (pt just amputation on rt leg above knee. reports that it looks good. no edema/infection at the surgical sight), tenderness - SKIN Integumentary: normal color, warm/dry, rash (mild bed sores) - NEUROLOGIC Neurologic: laboratory supervisor II-XII nml as tested, grossly normal - PSYCHIATRIC Psych/Mental Status: normal mood/affect, normal thought content, normal thought process, oriented x 3 Progress - PLAN OF CARE/RESULTS Progress/Plan/Lab Results: Vital Signs - 8 hr 10/23/16 12:18 Temperature 98.4 F Pulse Rate 83 Respiratory Rate 22 Blood Pressure 186/89 O2 Sat by Pulse Oximetry 100 Orders Category Date Time Status Cardiac Monitoring DIRECTED Care 10/23/16 12:40 Active Saline Loc NOW Care 10/23/16 12:40 Active CHEST-PORTABLE [RAD] Stat Exams 10/23/16 12:41 Ordered CBC WITH ELECTRONIC DIFF [HEME] Stat Lab 10/23/16 12:40 Uncollected COMPREHENSIVE METABOLIC PANEL [CHEM] Stat Lab 10/23/16 12:40 Uncollected MAGNESIUM [CHEM] Stat Lab 10/23/16 12:40 Uncollected PRO B-NATRIURETIC PEPTIDE Stat Lab 10/23/16 12:40 Uncollected PROTIME WITH INR [COAG] Stat Lab 10/23/16 12:40 Uncollected PTT [COAG] Stat Lab 10/23/16 12:40 Uncollected TROPONIN T Stat Lab 10/23/16 12:40 Uncollected URINALYSIS [URINALYSIS] Stat Lab 10/23/16 12:42 Uncollected EKG [EKG] Stat Ther 10/23/16 12:40 Ordered Result Diagrams: 10/23/16 13:00 10/23/16 13:30 - EKG 1 Time of EKG reading by physician:: 12:45 EKG Read and Signed by:: Prabhakar Franklin EKG Interpretation (*Must complete 3 of following elements*): Normal Rate: 94 Rhythm: NSR [place]: normal QRS: normal ST Wave: normal Comments: Low voltage, flattening of [place] - XRAY 1 XRAY Study: Chest Impression: See EMR Report - CONSULTS/PCP/HOSPITALIST Notification #1 *Consult/PCP/Hospitalist*: Dr Fisher Time Discussed: 15:16 Consult Disposition: Admit Departure - Departure Date of Disposition Decision: 10/23/16 Time of Disposition Decision: 15:17 DIAGNOSIS: Urinary retention CHF exacerbation Qualifiers: Congestive heart failure type: unspecified congestive heart failure type Qualified Code(s): I50.9 - Heart failure, unspecified UTI (urinary tract infection) Qualifiers: Urinary tract infection type: site unspecified Hematuria presence: without hematuria Qualified Code(s): N39.0 - Urinary tract infection, site not specified Disposition: ADMITTED INPATIENT 09 Certified Medical Emergency: Emergent Condition: Fair Referrals and Follow-Ups: Star Walker MD [Primary Care Provider] - - Critical Care Note This patient required my direct & personal management of CC.: No This chart was documented by the indicated scribe, (Amanda Morejon, Scribe) and accurately reflects the services I performed and decisions made by me, Prabhakar Franklin MD, as attested by the provider's signature.
[2016-10-23] MEDS ORDERED: DULCOLAX PR ONE (16:12)
[2016-10-23] MEDS ORDERED: APRESOLINE IV PRN (17:23)
[2016-10-23] MEDS ORDERED: ZOFRAN IV PRN (17:23)
[2016-10-23] MEDS: LOPRESSOR PO SCH (21:00)
[2016-10-23] MEDS: PRINIVIL PO SCH (21:00)
[2016-10-23] MEDS: LASIX IV SCH (21:01)
[2016-10-23] MEDS: GLUCOTROL XL PO SCH (21:01)
[2016-10-23] MEDS: NORCO-7.5 PO PRN (21:01)
[2016-10-23] MEDS: PERICOLACE PO SCH (21:35)
[2016-10-24] MEDS: HUMULIN R SUBQ SCH ×5 (02:37→21:43)
[2016-10-24] MEDS: LANTUS SUBQ SCH ×2 (02:38→21:43)
[2016-10-24] MEDS ORDERED: CALMOSEPTINE OINTMENT TOP PRN (03:09)
[2016-10-24] MEDS: NORCO-7.5 PO PRN ×3 (03:25→17:38)
[2016-10-24 06:45] LABS: MANUAL DIFF NEEDED? NO
--- NOTE | 2016-10-24 06:53 | EKG Report ---
Test Performed on : 10/24/2016 05:41:59 AM Test Reason : Heart Failure Admission Blood Pressure : / mmHG Vent. Rate : 086 BPM Atrial Rate : 086 BPM P-R Int : 130 ms QRS Dur : 080 ms QT Int : 470 ms P-R-T Axes : 068 065 -33 degrees QTc Int : 562 ms Normal sinus rhythm. Low voltage QRS Cannot rule out Anterior infarct (cited on or before 23-OCT-2016) Prolonged QT Abnormal ECG When compared with ECG of 23-OCT-2016 12:45, (Unconfirmed) No significant change was found Confirmed by Raymundo Ellis MD ([id number]) on 10/24/2016 8:35:09 AM
[2016-10-24 06:59] LABS: BASO% 0.9 % (0.0-0.8); EOS# 0.19 X1000 (0.0-0.7); EOS% 2.2 % (0.0-10.0); HEMATOCRIT 29.6 % (37.0-47.0); HEMOGLOBIN 9.6 g/dL (12.0-16.0); IMM GRAN# 0.02 X1000 (0.0-0.04); IMM GRAN% 0.2 % (0.0-0.5); LYMPH# 1.83 X1000 (1.2-3.4); LYMPH% 21.5 % (20.5-51.1); MCH 27.4 PG (27-31); MCHC 32.4 g/dL (33-37); MCV 84.6 FL (81-99); MONO# 0.77 X1000 (0.11-0.59); NEUT% 66.2 % (42.2-75.2); PLT 513 X1000 (130-400)
--- NOTE | 2016-10-24 07:20 | Diag Imaging Result Doc PS360 ---
EXAM: CHEST-PORTABLE HISTORY: Heart failure TECHNIQUE: AP portable at 0500 COMMENT: Compared to 10/23/2016 the heart size appears smaller and the pulmonary edema which was present in the lung bases previously has improved somewhat. There is still hazy opacity over the left base. The costophrenic angle is better seen on the current study. IMPRESSION: Improved cardiomegaly and pulmonary edema. Electronically signed by Viraj Vogt 10/24/2016 7:17 AM
[2016-10-24 07:30] LABS: CALCIUM 8.5 mg/dL (8.8-10.2); MAGNESIUM 1.4 mg/dL (1.5-2.7); POTASSIUM 3.6 mmol/L (3.5-5.1)
[2016-10-24] MEDS: PERICOLACE PO SCH ×2 (09:58→21:45)
[2016-10-24] MEDS: PRINIVIL PO SCH ×2 (09:59→21:45)
[2016-10-24] MEDS: ASPIRIN PO SCH (09:59)
[2016-10-24] MEDS: GLUCOTROL XL PO SCH ×2 (09:59→21:44)
[2016-10-24] MEDS: LOPRESSOR PO SCH ×2 (09:59→21:38)
[2016-10-24] MEDS: NEURONTIN PO SCH ×3 (10:00→17:30)
[2016-10-24] MEDS: LEVAQUIN PO SCH (10:00)
[2016-10-24] MEDS: MIRALAX PO SCH (10:00)
[2016-10-24] MEDS: LOVENOX SUBQ SCH (10:00)
[2016-10-24] MEDS: LASIX IV SCH ×2 (10:06→21:43)
[2016-10-24 10:24] LABS: FREE T4 1.36 ng/dL (0.93-1.70)
[2016-10-24] MEDS: KLONOPIN PO PRN ×2 (13:25→21:41)
[2016-10-24] MEDS: TYLENOL PO PRN ×2 (13:26→21:41)
[2016-10-24] MEDS: MEVACOR PO SCH (21:38)
--- NOTE | 2016-10-24 23:39 | PROGRESS NOTE ---
DATE: 10/24/2016 SUBJECTIVE: She is breathing better. Feeling better. Little less swelling. She does complain of some pain in the right stump, but she stated her bowels have moved. She is talking about wanting to go to rehab. Blood sugars, pattern sugars appear to be well controlled. In fact, we may have to back down on her medications, they have been running in the 70s and 80s. Laboratory work today, white count 8530, hematocrit 29, and platelet count 513,000. Chest x-ray from this morning, improved cardiomegaly and pulmonary edema. EKG from this morning appears unchanged. She has normal sinus rhythm, nonspecific T-wave inversion V1 throughout the precordial leads V1 through V6, as well as in limb leads 1, 3 and aVF. QTc interval was 562, aware. She is getting diuresed with Lasix b.i.d. I m going to continue this. I will recheck a chest x-ray, electrolytes in the morning. Continue physical therapy. May want to try some Neurontin or go up on her Neurontin. She is on 300 mg p.o. t.i.d. She is having right stump pain. Continue her current pain medicine, and I think we will try some tramadol and see if that will help. cc: James Turk MD
[2016-10-25] MEDS: NORCO-7.5 PO PRN ×2 (04:36→16:35)
[2016-10-25] MEDS: TYLENOL PO PRN ×2 (05:01→23:00)
[2016-10-25] MEDS: HUMULIN R SUBQ SCH ×4 (06:02→22:10)
[2016-10-25] MEDS: KLONOPIN PO PRN ×2 (06:11→16:35)
[2016-10-25 07:23] LABS: CALCIUM 8.4 mg/dL (8.8-10.2); MAGNESIUM 1.3 mg/dL (1.5-2.7); POTASSIUM 3.3 mmol/L (3.5-5.1)
[2016-10-25] MEDS: ASPIRIN PO SCH (09:19)
[2016-10-25] MEDS: PERICOLACE PO SCH ×2 (09:19→22:10)
[2016-10-25] MEDS: LOPRESSOR PO SCH ×2 (09:19→22:07)
[2016-10-25] MEDS: NEURONTIN PO SCH ×3 (09:20→17:03)
[2016-10-25] MEDS: PRINIVIL PO SCH ×2 (09:20→22:06)
[2016-10-25] MEDS: LEVAQUIN PO SCH (09:20)
[2016-10-25] MEDS: GLUCOTROL XL PO SCH ×2 (09:21→22:10)
[2016-10-25] MEDS: LASIX IV SCH ×2 (09:21→22:00)
[2016-10-25] MEDS: LOVENOX SUBQ SCH (09:21)
[2016-10-25] MEDS: MIRALAX PO SCH (09:22)
[2016-10-25] MEDS: ULTRAM PO PRN ×2 (15:15→22:08)
--- NOTE | 2016-10-25 17:28 | PROGRESS NOTE ---
DATE: 10/25/2016 SUBJECTIVE: Ms. Santos is feeling better. She is sitting up. She had 2, I think, her nieces over there, and she was asking about when she could go home. It sounded like she wanted to try and go home with home health, but then it also sounded like she wanted to try and go to a rehab. I told the social worker clinical we are looking for her options and whether she is eligible I think she want to try to go to [facility]. OBJECTIVE: Temperature 98.0 degrees, pulse 80, respirations 20, blood pressure 145/70.HEENT: Pupils are equal, round. CVP less than 6 cm. Lungs: Clear in all lung hernandez. Cardiovascular: Regular rhythm and rate without murmur or S3. Abdomen: Soft. Skin: Warm and dry. Genitourinary: Urine output was 5200 mL. DIAGNOSTIC DATA: Blood sugars 78, 101, 128. Her white blood cell count 8530. Hematocrit 29, platelet count 513,000. Sodium 142, potassium 3.3, chloride 101, bicarb 33, BUN 6, creatinine 1.3. Magnesium was 1.3. ASSESSMENT AND PLAN: 1. Shortness of breath. A little bit of pulmonary venous hypertension. This appears to have improved. 2. Right stump discomfort. We are going to try some tramadol. 3. Diabetes mellitus type 2. Her sugars appear to be well controlled. 4. Peripheral vascular disease, status post right upper above the knee amputation. Seems to be healing well. Want to pursue discharge plans. Her chest x-ray which was done yesterday showed improvement. We will let her try some tramadol for the pain in her stump. cc: James Turk MD
[2016-10-25] MEDS: LANTUS SUBQ SCH (22:09)
[2016-10-25] MEDS: MEVACOR PO SCH (22:09)
[2016-10-26] MEDS: KLONOPIN PO PRN (02:42)
[2016-10-26] MEDS: NORCO-7.5 PO PRN ×4 (02:42→22:42)
[2016-10-26] MEDS: HUMULIN R SUBQ SCH ×4 (06:35→22:39)
[2016-10-26] MEDS: NEURONTIN PO SCH ×3 (09:02→16:36)
[2016-10-26] MEDS: GLUCOTROL XL PO SCH ×2 (09:03→22:34)
[2016-10-26] MEDS: ASPIRIN PO SCH (09:03)
[2016-10-26] MEDS: LEVAQUIN PO SCH (09:03)
[2016-10-26] MEDS: PRINIVIL PO SCH ×2 (09:03→22:34)
[2016-10-26] MEDS: LASIX IV SCH (09:04)
[2016-10-26] MEDS: PERICOLACE PO SCH ×3 (09:04→22:36)
[2016-10-26] MEDS: MIRALAX PO SCH (09:04)
[2016-10-26] MEDS: LOPRESSOR PO SCH ×2 (09:05→22:33)
[2016-10-26] MEDS: LOVENOX SUBQ SCH (09:05)
[2016-10-26] MEDS ORDERED: MAGNESIUM SULFATE 2 GM/S.W.I. 2 GM/50 ML IVPB IV ONE (14:19)
[2016-10-26] MEDS ORDERED: NS 500 ML ONE (15:53)
[2016-10-26] MEDS: MAG-OX PO SCH ×2 (16:06→22:33)
--- NOTE | 2016-10-26 16:27 | PROGRESS NOTE ---
DATE: 10/26/2016 She is feeling better. Breathing better. She does not feel like the tramadol is doing much for the pain. She does not feel like she will be able to go to rehab but maybe would like to try and go home tomorrow. She is supposed to discuss it with her family. Temp 97.0 degrees, pulse 77, respirations 20, blood pressure 164/62. Lungs: Are clear in all lung hernandez. Cardiovascular.: Regular rhythm and rate without murmur or S3. Abdomen: Soft. Skin: Warm and dry. Urine output was 6-7 L. LAB: Reviewed lab from the , hematocrit stable at 29. Blood sugars 128, 108, 144, 159. ASSESSMENT AND PLAN: 1. Shortness of breath. A little bit of pulmonary venous hypertension which transient. She has diastolic dysfunction. That is markedly improved. Breathing is good. 2. Right stump discomfort. We are trying some tramadol. 3. Diabetes mellitus type 2. Sugars look good. 4. Peripheral vascular disease. She has recently had a right [id number] amputation. She already had a left [id number] amputation. Continue physical therapy. I think she might be ready go home tomorrow. We will check another chest x-ray today, follow up of her lab. Creatinine is stable. We will supplement some potassium and magnesium. cc: James Turk MD
[2016-10-26] MEDS: POTASSIUM CHLORIDE 20 MEQ/SWI 20 MEQ/100 ML IVPB IV SCH ×2 (17:16→22:28)
[2016-10-26] MEDS: MEVACOR PO SCH (22:33)
[2016-10-26] MEDS: LANTUS SUBQ SCH (22:51)
[2016-10-26] MEDS ORDERED: INSULIN PEN NEEDLES ONE (22:51)
[2016-10-27] MEDS: HUMULIN R SUBQ SCH ×4 (06:42→22:16)
[2016-10-27 06:47] LABS: CALCIUM 9.1 mg/dL (8.8-10.2); MAGNESIUM 2.2 mg/dL (1.5-2.7); POTASSIUM 4.1 mmol/L (3.5-5.1)
[2016-10-27] MEDS: GLUCOTROL XL PO SCH ×2 (08:28→22:14)
[2016-10-27] MEDS: PRINIVIL PO SCH ×2 (08:32→22:15)
[2016-10-27] MEDS: MAG-OX PO SCH ×2 (08:35→22:15)
[2016-10-27] MEDS: MIRALAX PO SCH (08:36)
[2016-10-27] MEDS: PERICOLACE PO SCH ×2 (08:37→22:14)
[2016-10-27] MEDS: KLOR-CON PO SCH (08:38)
[2016-10-27] MEDS: LASIX PO SCH (08:40)
[2016-10-27] MEDS: NEURONTIN PO SCH ×3 (08:41→17:26)
[2016-10-27] MEDS: ASPIRIN PO SCH (08:41)
[2016-10-27] MEDS: LOPRESSOR PO SCH ×2 (08:42→22:15)
[2016-10-27] MEDS: LEVAQUIN PO SCH (08:43)
[2016-10-27] MEDS: LOVENOX SUBQ SCH (08:44)
[2016-10-27] MEDS: ULTRAM PO PRN (08:56)
--- NOTE | 2016-10-27 13:53 | PROGRESS NOTE ---
DATE: 10/27/2016 SUBJECTIVE: Ms. Santos is breathing good, comfortable. She would like to see if she can get to rehab, but if not, she said she will want to try and go home. Still needs to continue physical therapy. She remains afebrile. OBJECTIVE: Vital signs: Temperature 99.4 degrees, pulse 75, respirations 16, blood pressure 147/74. Lungs: Clear in all lung hernandez. Cardiovascular: Regular rhythm and rate without murmur or S3. Abdomen: Soft, nontender. Skin: Is warm and dry. : Urine output 6 L. LABORATORY: Reviewed from 10/27, sodium 144, potassium 4.1, chloride 99, BUN 10, creatinine 1.3. Blood sugar 109, 127, 71. ASSESSMENT AND PLAN: 1. Shortness of breath. Pulmonary venous hypertension, which was transient. She does have some diastolic dysfunction. 2. Right stump discomfort. I am going to let her go back to her [place]. I will stop the tramadol. 3. Diabetes mellitus type 2. Sugars under good control. 4. Peripheral vascular disease. I believe her previous echo she did have some diastolic and systolic dysfunction. Ejection fraction by myocardial perfusion scan was 45%. So it was very mild and she could very well have some underlying coronary insufficiency. No sign of active ischemia at this point. I will stop the tramadol and will try her on the [place] again. cc: James Turk MD
[2016-10-27] MEDS: KLONOPIN PO PRN ×2 (14:24→22:25)
[2016-10-27] MEDS: NORCO-7.5 PO PRN (17:30)
[2016-10-27] MEDS: MEVACOR PO SCH (22:15)
[2016-10-27] MEDS: LANTUS SUBQ SCH (22:18)
[2016-10-28] MEDS: NORCO-7.5 PO PRN ×3 (03:19→18:40)
[2016-10-28] MEDS: KLONOPIN PO PRN ×2 (06:25→18:40)
[2016-10-28] MEDS: HUMULIN R SUBQ SCH ×4 (07:02→21:05)
[2016-10-28] MEDS: LOVENOX SUBQ SCH (09:56)
[2016-10-28] MEDS: PRINIVIL PO SCH ×2 (09:57→21:00)
[2016-10-28] MEDS: ASPIRIN PO SCH (09:57)
[2016-10-28] MEDS: LASIX PO SCH (09:57)
[2016-10-28] MEDS: LEVAQUIN PO SCH (09:57)
[2016-10-28] MEDS: KLOR-CON PO SCH (09:57)
[2016-10-28] MEDS: MAG-OX PO SCH ×2 (09:57→21:01)
[2016-10-28] MEDS: GLUCOTROL XL PO SCH ×2 (09:58→21:01)
[2016-10-28] MEDS: LOPRESSOR PO SCH ×2 (09:58→21:01)
[2016-10-28] MEDS: NEURONTIN PO SCH ×3 (09:58→18:33)
[2016-10-28] MEDS: MIRALAX PO SCH (09:59)
[2016-10-28] MEDS: PERICOLACE PO SCH ×2 (10:35→21:05)
--- NOTE | 2016-10-28 12:58 | PROGRESS NOTE ---
DATE: 10/28/2016 SUBJECTIVE: Ms. Santos is breathing comfortably, doing better. Put her back on her [place]. It seems to be helping the pain a little more. PHYSICAL EXAMINATION: Vital Signs: Temperature 98.5 degrees, pulse 80, respirations 16, blood pressure 137/59. Lungs: Clear in all lung hernandez. Cardiovascular: Regular rate without murmur or S3. Abdomen: Soft. Skin: Warm and dry. Intake and output: Urine output was 6 L. LAB: Reviewed, looks good. ASSESSMENT AND PLAN: 1. Diastolic and mild systolic dysfunction. Presented with low pulmonary venous hypertension which has resolved. Breathing status is good. Good air and gas exchange. 2. Right stump discomfort, better. 3. Diabetes mellitus type 2. Sugar is under good control. 4. Peripheral vascular disease status post right [id number] amputation. She would like to go to rehab. I am not sure she is going to be eligible since she left the previous rehab AMA. Will continue present regimen. Reviewed her orders. No change at this time. cc: James Turk MD
[2016-10-28] MEDS: MEVACOR PO SCH (21:01)
[2016-10-28] MEDS: LANTUS SUBQ SCH (21:06)
[2016-10-29] MEDS: NORCO-7.5 PO PRN ×4 (01:40→23:54)
[2016-10-29] MEDS: KLONOPIN PO PRN ×3 (02:33→18:35)
[2016-10-29] MEDS: HUMULIN R SUBQ SCH ×4 (06:25→20:41)
[2016-10-29] MEDS: LASIX PO SCH (09:42)
[2016-10-29] MEDS: LOPRESSOR PO SCH ×2 (09:42→20:44)
[2016-10-29] MEDS: GLUCOTROL XL PO SCH ×2 (09:42→20:44)
[2016-10-29] MEDS: ASPIRIN PO SCH (09:42)
[2016-10-29] MEDS: LEVAQUIN PO SCH (09:42)
[2016-10-29] MEDS: KLOR-CON PO SCH (09:43)
[2016-10-29] MEDS: NEURONTIN PO SCH ×3 (09:43→18:35)
[2016-10-29] MEDS: PRINIVIL PO SCH ×2 (09:43→20:44)
[2016-10-29] MEDS: PERICOLACE PO SCH ×2 (09:43→20:44)
[2016-10-29] MEDS: LOVENOX SUBQ SCH (09:44)
[2016-10-29] MEDS: MAG-OX PO SCH ×2 (09:44→20:44)
[2016-10-29] MEDS: MIRALAX PO SCH (10:30)
--- NOTE | 2016-10-29 18:37 | PROGRESS NOTE ---
DATE: 10/29/2016 SUBJECTIVE: She had a good day, breathing comfortably, eating well, was hoping she can go to rehab soon. OBJECTIVE: Vital signs: Remains afebrile, temperature 97.0 degrees, pulse 79, respirations 20, blood pressure 158/87. HEENT: Pupils are equal, round. Lungs: Are clear in all lung hernandez. Cardiovascular: Regular rhythm, rate without murmur or S3. Abdomen: Soft. Skin: Is warm and dry. Urine output was 2200 mL. Blood sugar 169, 107, 127. ASSESSMENT AND PLAN: 1. Diastolic mild systolic dysfunction. She presented with a little bit of pulmonary venous hypertension. Breathing is comfortable, doing well. No bronchospasm, no sign of infection. 2. Right stump discomfort which is improved. 3. Diabetes mellitus type 2. Continue follow sugars. 4. Peripheral vascular disease status post right oweuh-qii-bcva amputation. Hopefully go to [facility] tomorrow, I hear she has been accepted. 5. Chest x-ray. Improved cardiomegaly, pulmonary edema. cc: James Turk MD
[2016-10-29] MEDS: LANTUS SUBQ SCH (20:43)
[2016-10-29] MEDS: MEVACOR PO SCH (20:45)
[2016-10-30] MEDS: TYLENOL PO PRN (03:38)
[2016-10-30] MEDS: KLONOPIN PO PRN (03:38)
[2016-10-30 07:49] VITALS: BP 143/68
[2016-10-30] MEDS: HUMULIN R SUBQ SCH ×2 (08:11→12:23)
[2016-10-30] MEDS: NEURONTIN PO SCH (08:12)
[2016-10-30] MEDS: PERICOLACE PO SCH (08:12)
[2016-10-30] MEDS: MAG-OX PO SCH (08:12)
[2016-10-30] MEDS: MIRALAX PO SCH ×2 (08:12→08:17)
[2016-10-30] MEDS: LASIX PO SCH (08:13)
[2016-10-30] MEDS: ASPIRIN PO SCH (08:13)
[2016-10-30] MEDS: LEVAQUIN PO SCH (08:13)
[2016-10-30] MEDS: GLUCOTROL XL PO SCH (08:13)
[2016-10-30] MEDS: LOPRESSOR PO SCH (08:13)
[2016-10-30] MEDS: KLOR-CON PO SCH (08:13)
[2016-10-30] MEDS: PRINIVIL PO SCH (08:13)
[2016-10-30] MEDS: NORCO-7.5 PO PRN (10:07)
[2016-10-30] MEDS: LOVENOX SUBQ SCH (10:08)
--- NOTE | 2016-10-31 09:05 | DISCHARGE SUMMARY ---
ADMISSION DATE: 10/23/2016 DISCHARGE DATE: 10/30/2016 CONSULTATIONS: None. PERTINENT PROCEDURES: 1. Chest x-ray showed cardiomegaly and pulmonary edema. 2. Follow up chest x-ray showed improved cardiomegaly and pulmonary edema. DISCHARGE DIAGNOSES: 1. Mild diastolic systolic dysfunction improved with diuresis. 2. Right stump discomfort improved. 3. Diabetes mellitus type 2. Sugars are in good control. 4. Peripheral vascular disease status post right gsooh-byb-upkj amputation. The patient has been accepted to rehab. 5. Pulmonary venous hypertension just transient now stable. HOSPITAL COURSE: Ms. Santos is a 46-year-old female who carries a history of diastolic heart failure, hypertension, diabetes type 2, peripheral neuropathy, stage 3 kidney disease and peripheral artery disease, status post left ihxwh-xek-opyk amputation, coronary artery disease status post stenting. Patient came to the ED complaining of worsening intermittent drooling. The patient presented to the ED for postop complaints. She had surgery at [facility] for a right qzpqg-ctm-ymgm amputation about a week prior. She was sent to rehab after surgery. She left rehab AMA not being satisfied with the care at the facility. She had a catheter until the day before admission. She was having trouble urinating after her catheter was removed. She complained of feeling puffy and swollen. Initial chest x-ray obtained in the ED showed cardiomegaly with pulmonary edema. She was initiated on diuretics. Her proBNP was elevated at 4783. She had a set of serial cardiac enzymes. Her creatinine is at 1.1. Historically it is around 1.3. She was started on stool softeners for her constipation. She is not complaining of any dysuria or gross hematuria. However, her urine did show mild sediment and did have 4+ bacteria, less than 10 WBCs. A [place] catheter was placed. She was treated empirically with Levaquin and states she does have an allergy to penicillin. However, did not think that this was a symptomatic UTI. Followed her labs daily. Physical Therapy was consulted as well as social media manager to see about rehab placement. The patient was gently diuresed. Her IV diuretics were changed to p.o. Her breathing has improved. We did try tramadol for her pain for her amputation. She felt like that it did not do her any good. She was put back on Flora that did improve her pain. She was on again off again the fence about going to rehab. At this time, she has decided to go to rehab. She has been accepted. She will be discharged today. Vital signs: Temperature is 98 degrees, heart rate 79, respirations 14, blood pressure is 143/68, and O2 is 100% on room air. DISCHARGE DIET: Healthy heart. DISCHARGE MEDICATIONS: As per Dr. Manzano. Please see MAR. FOLLOWUP: Ms. Santos is being discharged to rehab where she will continue with her physical therapy. She will take all antibiotics as prescribed. She will return to the ED for any worsening of symptoms. Dictated by NURY Shahid for Jaziel Bentley MD cc: Jaziel Bentley MD
== END 2016-10-30 13:00 | disposition home health service (06) ==
LOC: ED 12:15 → SUATTDRO 16:45 → 3N 16:45
PROVIDERS: ATTEND Internal Medicine

== ENCOUNTER 2018-08-23 19:24 | Observation (INO) ==
[2018-08-23] MEDS ORDERED: NORFLEX IM ONE (19:55)
[2018-08-23] MEDS ORDERED: ASPIRIN PO ONE (19:57)
--- NOTE | 2018-08-23 20:07 | PROVIDER DOCUMENTATION ---
HPI-General Adult - General Chief Complaint: Headache Stated Complaint: head pain radiating to L neck, arm and chest Time Seen by Provider: 08/23/18 20:03 Source: patient Allergies/Adverse Reactions: Patient Allergies Allergy/AdvReac Type Severity Reaction Status Date / Time Penicillins Allergy RASH Verified 10/14/17 10:08 Home Medications: Home Medication List Medication Instructions Recorded Confirmed Last Taken Type Aspirin 81 mg PO DAILY #0 chewtab 01/29/13 10/14/17 10/23/16 Rx Glipizide [Glipizide Xl] 5 mg PO BID 11/10/15 10/14/17 10/23/16 History Insulin Glargine [Lantus] 18 unit SUBQ QHS 11/10/15 10/14/17 10/22/16 History Metoprolol Succinate E.r. [Toprol 25 mg PO BID #0 tablet 03/19/16 10/14/17 10/23/16 Rx Xl] Furosemide [Lasix] 20 mg PO DAILY #30 tablet 10/30/16 10/14/17 Unknown Rx Polyethylene Glycol 3350 [Miralax] 17 gm PO DAILY PRN powder, packet 10/30/16 10/14/17 Unknown Rx Potassium Chloride E.r. [Klor-Con] 10 meq PO DAILY #30 tablet 10/30/16 10/14/17 Unknown Rx Alprazolam 1 mg PO BID 10/14/17 10/14/17 Unknown History Gabapentin [Neurontin] 600 mg PO HS 10/14/17 10/14/17 Unknown History Hydrocodone/APAP 7.5 mg/325 mg 1 each PO Q8H PRN PRN 10/14/17 10/14/17 Unknown History [[place]-7.5] Nitroglycerin 0.4 mg SL DAILY PRN 10/14/17 10/14/17 Unknown History Omeprazole 40 mg PO DAILY 10/14/17 10/14/17 Unknown History Ranolazine [Ranexa] 500 mg PO BID 10/14/17 10/14/17 Unknown History LISINOpril [Prinivil] 10 mg PO BID #60 tab 10/16/17 Unknown Rx - History of Present Illness -Gen Adult Nature of Presenting Problems: pt c/o severe left side Head pain radiating to neck, shoulder and chest. pr darlings prior HX of GONSALES and states this is the worst GONSALES she has ever had with neck stiffness and loss of ROM. pt has extensive cardiac hx, and sttes she has not been feeling "right" during this pain, the pain is described as sharp and radiating,. pt denesi SOB, n/v, diaphoresis, cough, congestion or other sx at thsi time. pt states this feels like prior [facility]'s Location of Pain/Injury: reports: head (left side temporal GONSALES), neck (left side neck pain raditing from head to chest and left arm.) Pain Radiation: reports: arm(s) (left), chest (left), neck (left) Quality of Pain: reports: sharp, stabbing Severity: reports: moderate Onset/Duration: reports: 4 days ago Timing: reports: still present Context/Activities at Onset: reports: rest, sleep, other (pt woke up with pain) Modifying Factors: improves with: nothing Associated Symptoms: reports: other (mild left arm weakness) Similar Symptoms Previously?: No Recently seen or treated by another doctor?: No - Diabetes Related Context Context: reports: high blood sugar Review of Systems - Adult - REVIEW OF SYSTEMS - ADULT Constitutional: reports: no symptoms reported Eyes: reports: no symptoms reported Ears, Nose, Mouth & Throat: reports: no symptoms reported Cardiovascular: reports: see HPI Respiratory: reports: no symptoms reported Gastrointestinal: reports: no symptoms reported Genitourinary: reports: no symptoms reported Musculoskeletal: reports: see HPI Integumentary: reports: no symptoms reported Neurological: reports: no symptoms reported Psychiatric: reports: no symptoms reported Endocrine: reports: no symptoms reported Hematologic/Lymphatic: reports: no symptoms reported Allergic/Immunologic: reports: no symptoms reported All Other Systems: Reviewed and Negative Past History - Adult - PAST MEDICAL HISTORY-ADULT Review of Records: reports: Old Records Reviewed, Nursing Assessment Review, Medications Reviewed Major Childhood Illnesses: reports: denies history Cardiovascular: reports: HTN, [facility] Respiratory: reports: denies history Gastrointestinal: reports: denies history Obstetrical/Gynecological: reports: denies history Genitourinary: reports: kidney disease Musculoskeletal: reports: denies history Neurological: reports: CVA Endocrine/Immune: reports: Diabetes Other Conditions: reports: denies history - PRIOR SURGERIES/PROCEDURES Surgical/Procedure History: reports: orthopedic (extremity) (left foot 5th toe amputate) - IMMUNIZATION STATUS Childhood Immunizations: See Nurse Assessment Flu Vaccine: See Nurse Assessment - FAMILY HISTORY Family History: reviewed, not pertinent - SOCIAL HISTORY Smoking: greater than 1 pack/day Provider spent 3-5 mins advising pt. on dangers of tobacco.: Discussed manners to quit use, and f/u contacts for add'l counseling. Substance Use: none/never Alcohol Use Frequency: never Physical Exam-General - PHYSICAL EXAM-ADULT Initial Vital Signs Reviewed: Yes - CONSTITUTIONAL General Appearance: appears well, alert, no apparent distress - EYES Eyes: PERRL/EOMI, pink conjunctivae. negative: photophobia, sclera injected, scleral icterus - HEAD, EARS, NOSE, MOUTH & THROAT HENMT: normocephalic/atraumatic, moist mucous membranes, normal ENT inspection - NECK Neck: supple, tender lateral, other (left side pain worse w movement) - RESPIRATORY Respiratory: chest non-tender, lungs clear, normal breath sounds, no pleuratic chest pain, no respiratory distress, no accessory muscle use - CARDIOVASCULAR Cardiovascular: normal peripheral pulses, regular rate, rhythm, no edema - GASTROINTESTINAL (ABDOMEN) Abdominal Exam: normal bowel sounds, non tender, soft - LYMPHATIC Lymphatic: no adenopathy - MUSCULOSKELETAL Back Exam: normal inspection, no CVA tenderness Extremity: other (bilateral AKA, mild left arm weakness possibly from prior CVA) - SKIN Integumentary: normal color, normal turgor, warm/dry - NEUROLOGIC Neurologic: grossly normal, focal weakness (mild left arm weakness possible from prior CVA). negative: facial droop - PSYCHIATRIC Psych/Mental Status: normal mood/affect, normal thought content, normal thought process, oriented x 3 Progress - PLAN OF CARE/RESULTS Progress/Plan/Lab Results: Vital Signs - 8 hr 08/23/18 19:24 Temperature 98 F Pulse Rate 86 Respiratory Rate 18 Blood Pressure 151/71 O2 Sat by Pulse Oximetry 100 Laboratory Results - last 24 hr 08/23/18 19:33 POC Glucose 249 H Orders Category Date Time Status Cardiac Monitoring DIRECTED Care 08/23/18 19:58 Active FSBS [Finger Stick Blood Sugar (ED)] DIRECTED Care 08/23/18 19:33 Active Oxygen Therapy- ED Nursing DIRECTED Care 08/23/18 19:58 Active Saline Loc NOW Care 08/23/18 19:58 Active CHEST-2 VIEWS [RAD] Stat Exams 08/23/18 19:[address] HEAD/C-SPINE W/O CONTRAST [CT] Stat Exams 08/23/18 19:53 Ordered CBC WITH ELECTRONIC DIFF [HEME] Stat Lab 08/23/18 19:54 Uncollected CK PROFILE [SP CHEM] Stat Lab 08/23/18 19:58 Uncollected COMPREHENSIVE METABOLIC PANEL [CHEM] Stat Lab 08/23/18 19:55 Uncollected PRO B-NATRIURETIC PEPTIDE Stat Lab 08/23/18 19:58 Uncollected PROTIME WITH INR [COAG] Stat Lab 08/23/18 19:58 Uncollected PTT [COAG] Stat Lab 08/23/18 19:58 Uncollected TROPONIN T Stat Lab 08/23/18 19:55 Ordered Aspirin Med 08/23/18 19:57 Discontinued 325 mg PO NOW ONE Orphenadrine [Norflex] Med 08/23/18 19:55 Discontinued 60 mg IM NOW ONE CP/SOB/Palp >45 yrs of Age Stat Oth 08/23/18 19:57 Ordered EKG [EKG] Stat Ther 08/23/18 19:55 Ordered Result Diagrams: 08/23/18 21:00 08/23/18 21:00 - EKG 1 Time of EKG reading by physician:: 20:15 EKG Read and Signed by:: Ellis Harp EKG Interpretation (*Must complete 3 of following elements*): Abnormal Rate: 83 Rhythm: NSR [place]: normal [place] Interval: normal ST Wave: normal Prior EKG Comparison: unchanged from prior (no significant changes from prior per Dr Harp) - CT/MRI 1 CT Study: Cervical Spine, Head Impression: Normal Comparison with other Films: no changes CT Results: NAD - CONSULTS/PCP/HOSPITALIST Notification #1 *Consult/PCP/Hospitalist*: Alisa Time Discussed: 22:48 Reason/Comments: admit to [place] campus Consult Disposition: Admit Departure - Departure Date of Disposition Decision: 08/23/18 Time of Disposition Decision: 22:47 DIAGNOSIS: Chest pain, BETTY (acute kidney injury) Disposition: HOME 01 Certified Medical Emergency: Emergent Condition: Stable Referrals and Follow-Ups: Star Walker MD [Primary Care Provider] - - Critical Care Note This patient required my direct & personal management of CC.: No Attestation - Physician/ OZZY Attestation Patient care was provided by Advanced Practice Provider:: Yes Advanced Practice Provider:: Anastasiia Zhao Advanced Practice Provider documentation review:: The Mid-level provider documentation, treatment plan and medical decision making was reviewed by the physician who agrees with all treatment and medical decision making by the MLP. The physician spent face to face time with patient:: No Advanced Practice Provider documentation review:: Supervising physician onsite and consulted in the evaluation and care of this patient. The physician did not have a face to face encounter with the patient. - HEART Score HEART Score: History: Moderately Suspicious (past MIx2, CVA, DM, HTN) HEART Score: ECG: Normal HEART Score: Age: 45-65 Years HEART Score: Risk Factors for Atherosclerotic Disease: > or = 3 Risk Factors or History of Atherosclerotic Disease HEART Score: Troponin: < or = Normal Limit Total HEART Score:: 4
--- NOTE | 2018-08-23 20:58 | EKG Report ---
Test Performed on : 08/23/2018 8:15:38 PM Test Reason : neck pain/ cardiac hx Blood Pressure : / mmHG Vent. Rate : 083 BPM Atrial Rate : 083 BPM P-R Int : 136 ms QRS Dur : 078 ms QT Int : 396 ms P-R-T Axes : 051 049 126 degrees QTc Int : 465 ms Normal sinus rhythm. Inferior infarct , age undetermined ST & T wave abnormality, consider lateral ischemia Abnormal ECG When compared with ECG of 14-OCT-2017 10:44, Inferior infarct is now present Unconfirmed Result
[2018-08-23 21:10] LABS: BASO# 0.09 X1000 (0.0-0.2); EOS% 5.8 % (0.0-10.0); HEMATOCRIT 32.2 % (37.0-47.0); HEMOGLOBIN 11.1 g/dL (12.0-16.0); IMM GRAN# 0.02 X1000 (0.0-0.04); IMM GRAN% 0.2 % (0.0-0.5); LYMPH# 3.68 X1000 (1.2-3.4); LYMPH% 42.5 % (20.5-51.1); MCH 27.8 PG (27-31); MCHC 34.5 g/dL (33-37); MCV 80.5 FL (81-99); MONO# 0.73 X1000 (0.11-0.59); MONO% 8.4 % (1.7-9.3); NEUT# 3.64 X1000 (1.4-6.5); NEUT% 42.1 % (42.2-75.2); PLT 353 X1000 (130-400); RDW 15.6 % (11.5-14.5); WBC 8.66 X1000 (4.8-10.8)
[2018-08-23 21:25] LABS: INR 0.84; PROTIME 11.9 Seconds (11.0-16.0); PTT 25.3 Seconds (22.3-41.8)
[2018-08-23 21:41] LABS: ALBUMIN 3.9 g/dL (3.5-5.0); CALCIUM 9.4 mg/dL (8.8-10.2); CREATININE 1.5 mg/dL (0.5-0.9); POTASSIUM 5.1 mmol/L (3.5-5.1); TOTAL BILIRUBIN 0.2 mg/dL (0.20-1.00); TOTAL PROTEIN 7.5 g/dL (6.3-8.3)
[2018-08-24] MEDS ORDERED: MORPHINE IV PRN (02:17)
[2018-08-24] MEDS ORDERED: TYLENOL PO PRN (02:17)
[2018-08-24] MEDS ORDERED: ZOFRAN IV PRN (02:17)
[2018-08-24 07:13] VITALS: BP 117/54
--- NOTE | 2018-08-24 07:21 | Diag Imaging Result Doc PS360 ---
EXAM: CHEST-2 VIEWS 08/23/2018 HISTORY: cp/neck pain TECHNIQUE: PA and lateral chest COMMENT: There has been no significant change in the appearance the chest since 10/14/2017. There are granulomatous calcifications in the left hilum. There are apparent calcifications in coronary arteries. The heart size and pulmonary vascularity are within normal limits. IMPRESSION: Stable chest. Electronically signed by Viraj Vogt 08/24/2018 7:19 AM
--- NOTE | 2018-08-24 07:58 | Diag Imaging Result Doc PS360 ---
EXAM: CT HEAD/C-SPINE W/O CONTRAST 08/23/2018 HISTORY: severe GONSALES and neck pain w/o known cause/ HX cva TECHNIQUE: This exam was performed using automated exposure control, adjustment of mA or kV according to patient size, and/or use of iterative reconstruction technique. COMMENT: The study is compared with the previous study of 10/14/2017. There is a small lucency in the inferolateral basal ganglia on the right which was also present previously. There is encephalomalacia in the left occipital lobe and posterior parietal lobe also present on the previous study. There is no evidence of bleed or abnormal extra-axial fluid collection. The visualized paranasal sinuses are clear. The calvarium is intact. Cervical spine: There is no evidence of fracture, subluxation, or prevertebral soft tissue swelling. The facets are well aligned. IMPRESSION: Chronic ischemic changes, no evidence of acute intracranial disease. No evidence of acute bony abnormality in the cervical spine. Electronically signed by Viraj Vogt 08/24/2018 7:55 AM
[2018-08-24] MEDS ORDERED: NITROGLYCERIN SL PRN (10:47)
[2018-08-24] MEDS ORDERED: NORCO-7.5 PO PRN (10:47)
[2018-08-24] MEDS ORDERED: ROBAXIN PO PRN (11:28)
--- NOTE | 2018-08-24 15:08 | HISTORY AND PHYSICAL ---
CHIEF COMPLAINT: Neck pain, headache. HISTORY OF PRESENT ILLNESS: This is a 48-year-old female with a history of prior CVA, diabetes, hypertension and chronic kidney disease. She is also status post bilateral above-knee amputations. She presented to the emergency room complaining of a headache. She stated it started in the left side of her neck. It radiates to the left side of her head, down into her left shoulder and upper chest. She states that it hurts to move. She describes the pain as a sharp stabbing pain that has been present for 4 days. She does have a history of left arm weakness which is residual from a prior CVA. CT of the head and cervical spine was performed in the emergency room which revealed chronic ischemic changes with no evidence of acute intracranial disease. No evidence of acute bony abnormality. She was given Norflex and aspirin and admitted for further evaluation and treatment. PAST MEDICAL HISTORY: Diastolic heart failure with EF of 55-60%, hypertension, diabetes mellitus type 2 with neuropathy, chronic kidney disease stage 3, peripheral artery disease, prior CVA with residual left-sided weakness. PAST SURGICAL HISTORY: Bilateral above-knee amputations. SOCIAL HISTORY: She drinks alcohol. She uses cocaine. She smokes a pack a day. ALLERGIES: Penicillin which causes a rash. HOME MEDICATIONS: A list will be obtained by the nursing staff and once verified will review and restart it as appropriate. REVIEW OF SYSTEMS: As discussed with the patient with pertinent positives stated in the HPI. She denied any syncope or dizziness, any change in vision, any palpitations, shortness of breath, cough, fever, chills, any night sweats, any nausea, vomiting, diarrhea, constipation, black or bloody vomitus or stools, hematuria, dysuria, frequency or urgency. PHYSICAL EXAMINATION: GENERAL: This is a 48-year-old female who is sitting up in the bed in no distress. VITAL SIGNS: Blood pressure is 117/54, with a heart rate of 75, respirations are 18, temperature 97.7, with room air sats 98-100%. EYES: Pupils are equal, round, react to light. EOMs are intact. Sclerae are anicteric. HEENT: Head is normocephalic, atraumatic. NECK: Supple. She does have pain with movement. She is tender to palpation along the sternocleidal muscle. PULMONARY: Breath sounds are clear. No increased work of breathing noted. Chest rises and falls symmetric to respiration. Chest wall is nontender to palpation. GASTROINTESTINAL: Abdomen is soft, nontender, nondistended with bowel sounds in all 4 quadrants. CARDIOVASCULAR: Regular rate and rhythm. S1, S2 appreciated. She has no lower extremity edema. No murmur. SKIN: Warm and dry. NEUROLOGIC: She is alert and oriented. Pupils are equal, round, react to light. EOMs are intact. Forehead is spared. She has equal nasal and flaring. No tongue or uvula deviation. Speech is clear. She has equal shoulder shrug. No plantar drift. Muscle strength and rotary shear operator of right arm are 5/5, left are 3-4/5. She has no plantar drift. LABORATORY DATA: WBC is 8.6 with hemoglobin 11.1, hematocrit 32.2, platelets of 353,000. Sodium 133, potassium 5.1, BUN 30, creatinine 1.5 with a glucose of 170. Troponins are negative on multiple occasions. Chest x-ray revealed stable chest. No significant change since 10/14/2017. There are granulomata and calcifications in the left hilum. There are apparent calcifications of the coronary arteries. Heart size and pulmonary vascularity are within normal limits. CT of the head and C-spine revealed no evidence of fracture, subluxation or prevertebral soft tissue swelling. Facets are well aligned. There are chronic ischemic changes to the head with no evidence of acute intracranial disease. No evidence of acute bony abnormality in the cervical spine. ASSESSMENT AND PLAN: 1. Headache. 2. Chest pain. 3. Chronic kidney disease. 4. Prior CVA with left arm weakness. 5. Diabetes mellitus. 6. Hypertension. 7. Chronic kidney disease. PLAN: The patient will be admitted to the Medical-Surgical floor and placed on telemetry for close monitoring with neuro checks as per the emergency room. She will be placed on a diabetic diet with pattern blood glucose. We will identify her medications and continue as is appropriate. We will give Robaxin t.i.d. p.r.n. pain. Further treatments pending hospital course. Dictated by NURY Altman for Baldomero Cuellar MD cc: NURY Altman MD
--- NOTE | 2018-08-24 15:34 | HISTORY AND PHYSICAL ---
ADDENDUM: Patient seen and examined by myself. Full note dictated and discussed with nurse practitioner. Patient presented to the hospital with headache. She was having left shoulder, left arm pain. Denies any known injury. PLAN: We will admit the patient to the hospital for observation. CT of the head was negative. cc: Baldomero Cuellar MD
[2018-08-24] MEDS ORDERED: NEURONTIN PO SCH (21:00)
[2018-08-24] MEDS ORDERED: CELEXA PO SCH (21:00)
[2018-08-24] MEDS ORDERED: GLUCOTROL PO SCH (21:00)
[2018-08-24] MEDS ORDERED: PRINIVIL PO SCH (21:00)
[2018-08-24] MEDS ORDERED: LOPRESSOR PO SCH (21:00)
[2018-08-24] MEDS ORDERED: AMBIEN PO SCH (21:00)
--- NOTE | 2018-08-24 21:22 | DISCHARGE SUMMARY ---
ADMISSION DATE: 08/24/2018 DISCHARGE DATE: 08/24/2018 DIAGNOSES: 1. Headache. 2. Left-sided chest pain. 3. Prior cerebrovascular accident with left arm weakness. 4. Diabetes mellitus. 5. Chronic kidney disease. 6. Hypertension. DIAGNOSTICS: CT of the head revealed chronic ischemic changes. No evidence of acute intracranial disease. No evidence of acute bony abnormality in the cervical spine. Cervical spine. No evidence of fracture, subluxation or prevertebral soft tissue swelling. The facets are well aligned. Chest x-ray revealed stable chest, the heart size and pulmonary vasculature within normal limits. HOSPITAL COURSE: Ms Santos presented to the emergency room complaining of 4 days of left-sided neck pain. It went to the left side of her head as well to her left arm. This was exacerbating with movement. It did decrease with being still. Her neck was supple, good range of motion although she did have pain. White count was negative. She had no fever. She was given Norflex which did relieve the pain somewhat. DISCHARGE PHYSICAL EXAM: Vital signs: Blood pressure is 117/54, heart rate of 75, respirations 16, temperature 97.7 degrees, room air saturations 95-98%. HEENT: Pupils equal, round, react to light. EOMs are intact. Sclerae are anicteric. Head is normocephalic, atraumatic. Mucous membranes are moist. Neck: Is supple with good range of motion. Trachea midline. Cardiovascular: Regular rate and rhythm. S1 and S2 appreciated. No murmur. Pulmonary: Breath sounds are clear with no increased work of breathing noted. Chest rise and fall symmetric with respiration. Chest wall is nontender to palpation. Gastrointestinal: Abdomen soft, nontender, nondistended. Bowel sounds in all 4 quadrants. Extremities: She is noted to have bilateral lower vqbmg-utb-brkj amputations. Neurologic: Pupils equal, round, react to light. EOMs are intact. Forehead is spared. She has no facial droop. She has equal nasal flaring. No tongue or uvula deviation. Speech is clear. She has equal shoulder shrug. No plantar drift. Right upper extremity strength and mine laborer 5/5, left upper extremity and mine laborer are 3 to 4/5 which is chronic secondary to CVA. She denies any light sensitivity. DISCHARGE MEDICATIONS: Ambien 10 mg p.o. at bedtime, Celexa 40 mg p.o. at bedtime, gabapentin 300 mg p.o. b.i.d., glipizide 5 mg p.o. b.i.d., [place] 1 q.8 hours as directed, Lopressor 25 mg p.o. b.i.d., omeprazole 40 mg p.o. daily, Klor-Con 10 mEq p.o. daily, lisinopril 10 mg p.o. b.i.d., Robaxin 500 mg p.o. t.i.d. p.r.n. She has been instructed verbally as well as writing not to drive or operate heavy machinery while taking Robaxin or [place]. FOLLOWUP: With her primary care physician, Dr. Star Walker within the next week. She needs to call in the morning for an appointment. She is being discharged home in stable condition with family members. TIME SPENT: Greater than 30 minutes. Dictated by NURY Altman for Baldomero Cuellar MD cc: NURY Altman MD
--- NOTE | 2018-08-25 03:49 | DISCHARGE SUMMARY ---
ADMISSION DATE: 08/24/2018 DISCHARGE DATE: 08/25/2018 DISCHARGE DIAGNOSES: 1. Left neck and shoulder pain, likely torticollis, resolving. 2. Headache, resolving. 3. Diabetes. 4. Hypertension. 5. Chronic pain. CONSULTATIONS: None. PROCEDURES: None. BRIEF HOSPITAL COURSE: The patient was admitted to the hospital, treated in the usual fashion, watched overnight. Thankfully, she ruled out for any type of TIA or neurologic event. All of her symptoms seem to be resolving at this point. She is tender to touch over her left deltoid and sternocleidomastoid. DISPOSITION: Patient will be discharged home. Discussed with her that she needs to continue her home medications, continue to follow her blood sugars and blood pressures. She may require physical therapy if this does not improve. No changes were made on her diet or activity otherwise. cc: Baldomero Cuellar MD
[2018-08-25] MEDS ORDERED: PRILOSEC PO SCH (07:00)
[2018-08-25] MEDS ORDERED: KLOR-CON PO SCH (09:00)
== END 2018-08-24 12:33 | disposition home or self-care (01) ==
LOC: P.MEDSURG 19:24 → P.ED 19:24 → P.MEDSURG 08-24 02:43
PROVIDERS: ATTEND Family Medicine
CPT/HCPCS: 70450; 71020; 71046; 72125; 80053; 82550; 82948; 83735; 83880; 84484; 85025; 85610; 85730; 93005; 94761; 96372; 99285; A9270; J2360 ×2; XXXXX